=== PATIENT | female | born 1975 | race Caucasian/White ===

== ENCOUNTER 2016-11-08 19:56 | Emergency (ER) | payer SELFPAY ==
[~2016-11-08] VITALS: Ht 165.1 cm; Wt 138.3 kg
--- OUTSIDE RECORDS SUMMARY | 2016-11-08 20:02 | XMS REPORT | Continuity of Care Document ---
Author Author Interface Organization Interface Address Unknown Phone Unavailable Problems Problem Status Onset Date Classification Date Reported Comments Source Medications Medication Details Route Status Patient Instructions Ordering Provider Order Date Source Allergies, Adverse Reactions, Alerts Substance Category Reaction Severity Reaction type Status Date Reported Comments Source Immunizations Immunization Date Given Site Status Last Updated Comments Source Results Order Name Results Value Reference Range Date Interpretation Comments Source Vital Signs Vital Sign Value Date Comments Source Encounters Location Location Details Encounter Type Encounter Number Reason For Visit Attending Provider ADM Date DC Date Status Source Procedures Procedure Code Date Perfomer Comments Source
[2016-11-08] MEDS ORDERED: ONDANSETRON 4 MG/2 ML (SDV) Z0FRAN IVP ONE (20:15)
[2016-11-08] MEDS ORDERED: SCOPOLAMINE 1.5 MG (TRANSDERM-SCOP) PATCH TD ONE (20:15)
[2016-11-08 20:28] LABS: BASOPHILS % (AUTO) 0 % (0-10); EOSINOPHILS # (AUTO) 0.2 10^3/uL (0.0-0.3); EOSINOPHILS % (AUTO) 2 % (0-10); LYMPHOCYTES # (AUTO) 5.3 X 10^3 (1.0-4.0); LYMPHOCYTES % (AUTO) 48 % (12-44); MEAN CORPUSCULAR HEMOGLOBIN 28 PG (25-34); MEAN CORPUSCULAR HGB CONC 33 G/DL (32-36); MEAN CORPUSCULAR VOLUME 84 FL (80-99); MEAN PLATELET VOLUME 11.2 FL (7.4-10.4); MONOCYTES # (AUTO) 0.7 X 10^3 (0.0-1.0); MONOCYTES % (AUTO) 7 % (0-12); NEUTROPHILS # (AUTO) 4.9 X 10^3 (1.8-7.8); NEUTROPHILS % (AUTO) 44 % (42-75); PLATELET COUNT 326 10^3/uL (130-400); RED BLOOD COUNT 4.66 10^6/uL (4.35-5.85); RED CELL DISTRIBUTION WIDTH 14.5 % (10.0-14.5); WHITE BLOOD COUNT 11.2 10^3/uL (4.3-11.0)
[2016-11-08 20:28] LABS: BILIRUBIN,URINE NEGATIVE (NEGATIVE); KETONES,URINE 1+ (NEGATIVE); LEUKOCYTE ESTERASE ,URINE NEGATIVE (NEGATIVE); NITRITE,URINE NEGATIVE (NEGATIVE); PH,URINE 6 (5-9); PROTEIN,URINE 2+ (NEGATIVE); UROBILINOGEN,URINE NORMAL (NORMAL)
[2016-11-08 20:31] LABS: PROTHROMBIN TIME PATIENT 12.8 SEC (12.2-14.7)
[2016-11-08] MEDS ORDERED: OMEP40CA36 PO (20:34)
[2016-11-08] MEDS ORDERED: CARV25TA PO (20:34)
[2016-11-08] MEDS ORDERED: LISI40TA PO (20:34)
[2016-11-08] MEDS ORDERED: SITA100T12 PO (20:34)
[2016-11-08] MEDS ORDERED: GLIM4TAB PO (20:34)
[2016-11-08] MEDS ORDERED: METF1000 PO (20:34)
[2016-11-08] MEDS ORDERED: FLUO40CA12 PO (20:34)
[2016-11-08] MEDS ORDERED: ASPI-586 PO (20:34)
[2016-11-08 20:47] LABS: ALANINE AMINOTRANSFERASE 17 U/L (0-55); ALBUMIN 3.7 G/DL (3.2-4.5); AMYLASE 28 U/L (25-125); ANION GAP 11 MMOL/L (5-14); ASPARTATE AMINO TRANSFERASE 10 U/L (5-34); BILIRUBIN,TOTAL 0.3 MG/DL (0.1-1.0); BLOOD UREA NITROGEN 12 MG/DL (7-18); BUN/CREATININE RATIO 13; CALCIUM 9.3 MG/DL (8.5-10.1); CARBON DIOXIDE 24 MMOL/L (21-32); CHLORIDE 99 MMOL/L (98-107); CREATINE KINASE 51 U/L (29-168); CREATININE SERUM 0.89 MG/DL (0.60-1.30); GFR ESTIMATED > 60; GLUCOSE 278 MG/DL (70-105); LIPASE 30 U/L (8-78); MAGNESIUM 1.3 MG/DL (1.8-2.4); POTASSIUM 4.1 MMOL/L (3.6-5.0); SODIUM 134 MMOL/L (135-145); TOTAL PROTEIN 6.8 G/DL (6.4-8.2)
[2016-11-08 20:47] LABS: WBC,URINE RARE /HPF
[2016-11-08 20:48] LABS: ALCOHOL < 10 MG/DL (<10)
[2016-11-08 21:01] LABS: TROPONIN I < 0.30 NG/ML (<0.30)
--- NOTE | 2016-11-08 21:02 | Diagnostic Imaging Report ---
PROCEDURE: CT head without contrast. TECHNIQUE: Multiple contiguous axial images were obtained through the brain without the use of intravenous contrast. INDICATION: Headache, dizziness, with nausea and vomiting COMPARISON STUDIES: None FINDINGS: Noncontrast CT scan of the head demonstrates no mass effect, midline shift, hemorrhage, or extra-axial fluid collections. The welch-white matter differentiation is normal. Visualized portions of the paranasal sinuses and mastoid air cells are clear. IMPRESSION: Negative CT scan of the head. Dictated by: Dictated on workstation # [id number]
--- NOTE | 2016-11-08 21:22 | Diagnostic Imaging Report ---
INDICATION: Chest pain, broken ribs on the left side of fourth, fifth, and sixth. FINDINGS: Portable view of the chest demonstrates the heart size and vascularity to be normal. There is some blunting of the left costophrenic angle which may be related to previous trauma. Small effusion cannot be excluded. There are healing fractures of the left fourth, fifth, and sixth ribs. No pneumothorax is seen. IMPRESSION: There are healing fractures of the left fourth, fifth, and sixth ribs. Some blunting of the left costophrenic angle is present which could be secondary to an effusion or more likely related to the previous chest trauma. Dictated by: Dictated on workstation # [id number]
--- NOTE | 2016-11-08 21:22 | ED General ---
General Chief Complaint: Chest Pain Stated Complaint: SVT Nursing Triage Note: PT TO [facility] WITH CC OF LT CHEST PAIN RADIATING TO BACK THAT STARTED AROUND 1400 TODAY. HX OF FX RIBS ON LT SIDE. PT HAD JUST GOT DONE WITH A 30 MIN WALK BEFORE PAIN STARTED. ALSO STATES VOMITING, DENIES DIARRHEA, DENIES URINARY PROBLEMS. Nursing Sepsis Screen: No Definite Risk Source of Information: Patient, EMS History of Present Illness Time Seen by Provider: 19:57 Initial Comments PT ARRIVES VIA EMS FROM HOME C/O "MILD" LEFT SIDED CHEST PAIN SINCE 1400 TODAY PAIN BEGAN AFTER SHE GOT HOME FROM "30 MINUTE WALK AT [place]" STATES SHE BROKE LEFT RIBS 2 YEARS AGO AND CHEST STILL HURTS FROM THAT STATES SHE IS "EXTREMELY DIZZY" C/O NAUSEA AND VOMITED "4 TIMES IN ONE SESSION" NO DIARRHEA NO ABDOMINAL PAIN NO URINARY SYMPTOMS HAS BEEN EATING AND DRINKING FINE ALL DAY NO SHORTNESS OF BREATH NO PALPITATIONS NO SWELLING IN LEGS/FEET OR PAIN IN CALVES PT IS DIABETIC BUT STATES SHE HAS NOT CHECKED HER BLOOD SUGAR FOR A FEW DAYS-- EMS ACCUCHECK 324 PT HAS NOT TAKEN ANY OF HER MEDICATIONS FOR THE LAST 2 DAYS--STATES MEDS "ARE OVER AT A FRIEND'S HOUSE" AND HAS NOT BOTHERED TO GET THEM. PCP: NORAH[facility] NO [facility] INST[facility] Allergies and Home Medications Allergies Coded Allergies: doxycycline (Verified Allergy, Unknown, 11/08/16) hydromorphone (Verified Allergy, Unknown, 11/08/16) latex (Verified Allergy, Unknown, 11/08/16) metoclopramide (Verified Allergy, Unknown, 11/08/16) morphine (Verified Allergy, Unknown, 11/08/16) prochlorperazine (Verified Allergy, Unknown, 11/08/16) Home Medications Aspirin 81 Mg Tablet. 81 MG PO (Reported) Carvedilol 25 Mg Tablet 25 MG PO BID (Reported) Fluoxetine HCl 40 Mg Capsule 40 MG PO (Reported) Glimepiride 4 Mg Tablet 4 MG PO (Reported) Lisinopril 40 Mg Tablet 40 MG PO DAILY (Reported) Meclizine HCl 25 Mg Tablet #30 25-50 MG PO Q6H Prescribed by: SANJANA BARNETT on 11/08/16 0844 Metformin HCl 1,000 Mg Tablet 1,000 MG PO (Reported) Omeprazole 40 Mg Capsule.dr 40 MG PO (Reported) Ondansetron 4 Mg Tab.rapdis #10 4 MG PO Q4H Prescribed by: SANJANA BARNETT on 11/08/162146 Scopolamine 1 Each Patch.td72 #3 1 EACH TD Q72 HOURS Prescribed by: SANJANA BARNETT on 11/08/162146 Sitagliptin Phosphate 100 Mg Tablet 100 MG PO (Reported) Constitutional: see HPINo chills, No diaphoresis, dizzinessNo fever, No malaise, No weakness EENTM: no symptoms reported Respiratory: no symptoms reportedNo cough, No short of breath, No wheezing Cardiovascular: see HPI chest painNo edema, No palpitations, No syncope, No vascular heart diseas Gastrointestinal: see HPINo abdominal pain, No diarrhea, No loss of appetite, nausea vomiting Genitourinary: no symptoms reported LMP: Oct 16, 2016 (NO CONTROL) Musculoskeletal: no symptoms reported Skin: no symptoms reported Psychiatric/Neurological: No Symptoms Reported Hematologic/Lymphatic: No Symptoms Reported Immunological/Allergic: no symptoms reported Past Ornsrlu-Hdkypu-Wkyykp Hx Patient Social History Alcohol Use: Occasionally Uses Recreational Drug Use: Yes (YEARS AGO "EXPERIMENTED" WITH DRUGS, WILL NOT ELABORATE ) Smoking Status: Current Everyday Smoker (1-2 PPD) Type Used: Cigarettes 2nd Hand Smoke Exposure: Yes Recent Foreign Travel: No Contact w/Someone Who Travel: No Recent Infectious Disease Expo: No Recent Hopitalizations: No Seasonal Allergies Seasonal Allergies: Yes Surgeries HX Surgeries: Yes (T&A 1988; DARIAN WELDON 1996; LYMPH NODES REMOVED FROM GROIN AGE 15; SEVERAL SEBACEOUS CYSTS/ABSCESSES REMOVED/DRAINED) Surgeries: Adenoidectomy, Gallbladder, Tonsillectomy Respiratory Hx Respiratory Disorders: Yes Respiratory Disorders: Asthma Cardiovascular Hx Cardiac Disorders: Yes (SVT) Cardiac Disorders: High Cholesterol, Hypertension, Irregular Heartbeat Neurological Hx Neurological Disorders: Yes Neurological Disorders: Headaches /Migraines, Neuropathy Reproductive System : No Genitourinary Hx Genitourinary Disorders: No Gastrointestinal Hx Gastrointestinal Disorders: Yes Gastrointestinal Disorders: Gastroesophageal Reflux Endocrine Hx Endocrine Disorders: Yes (OBESITY) Endocrine Disorders: Diabetes, Non-Insulin dep HEENT HX ENT Disorders: No Cancer Hx Cancer: No Psychosocial Hx Psychiatric Problems: Yes Behavioral Health Disorders: Depression Integumentary HX Skin/Integumentary Disorder: No Blood Transfusions Hx Blood Disorders: No Physical Exam Vital Signs Vital Sign - Last 12Hours 2/7/17 20:04 Temp 98.0 Pulse 87 Resp 20 B/P 163/88 Pulse Ox 97 O2 Delivery Room Air Capillary Refill : Less Than 3 Seconds General Appearance: No Apparent Distress Obese Other (REEKS OF CIGARETTES) HEENT: PERRL/EOMI Other (POOR DENTITION) Neck: Full Range of Motion Normal Inspection Non Tender SuppleNo JVD Respiratory: Normal Breath Sounds No Accessory Muscle Use No Respiratory Distress Other (LEFT CHEST WALL / RIB TENDERNESS--PALPATION REPRODUCES PAIN ) Cardiovascular: Regular Rate, Rhythm No Edema No JVD No Murmur Normal Peripheral Pulses Gastrointestinal: Normal Bowel Sounds No Organomegaly No Pulsatile Mass Non Tender Soft Back: Normal Inspection No CVA Tenderness No Vertebral Tenderness Extremity: Normal Capillary Refill Normal Inspection Normal Range of Motion Non Tender No Calf Tenderness No Pedal Edema Neurologic/Psychiatric: Alert Oriented x3 No Motor/Sensory Deficits Normal Mood/Affect accident investigator II-XII Norm as Tested Skin: Normal Color Warm/Dry Progress/Results/Core Measures Results/Orders Lab Results Laboratory Tests Test 11/08/16 20:00 11/08/16 20:20 Range/Units Activated Partial Thromboplast Time 25 24-35 SEC Alanine Aminotransferase (ALT/SGPT) 17 0-55 U/L Albumin 3.7 3.2-4.5 G/DL Alkaline Phosphatase 54 40-136 U/L Amylase Level 28 25-125 U/L Anion Gap 11 5-14 MMOL/L Aspartate Amino Transf (AST/SGOT) 10 5-34 U/L B-Type Natriuretic Peptide 18.7 <100.0 PG/ML BUN/Creatinine Ratio 13 Basophils # (Auto) 0.0 0.0-0.1 10^3/uL Basophils (%) (Auto) 0 0-10 % Blood Urea Nitrogen 12 7-18 MG/DL Calcium Level 9.3 8.5-10.1 MG/DL Carbon Dioxide Level 24 21-32 MMOL/L Chloride Level 99 98-107 MMOL/L Creatine Kinase MB 1.0 <6.6 NG/ML Creatinine 0.89 0.60-1.30 MG/DL Eosinophils # (Auto) 0.2 0.0-0.3 10^3/uL Eosinophils (%) (Auto) 2 0-10 % Estimat Glomerular Filtration Rate > 60 Glucose Level 278 H 70-105 MG/DL Hematocrit 39 35-52 % Hemoglobin 13.0 11.5-16.0 G/DL INR Comment 1.0 0.8-1.4 Lipase 30 8-78 U/L Lymphocytes # (Auto) 5.3 H 1.0-4.0 X 10^3 Lymphocytes (%) (Auto) 48 H 12-44 % Magnesium Level 1.3 L 1.8-2.4 MG/DL Mean Corpuscular Hemoglobin 28 25-34 PG Mean Corpuscular Hemoglobin Concent 33 32-36 G/DL Mean Corpuscular Volume 84 80-99 FL Mean Platelet Volume 11.2 H 7.4-10.4 FL Monocytes # (Auto) 0.7 0.0-1.0 X 10^3 Monocytes (%) (Auto) 7 0-12 % Neutrophils # (Auto) 4.9 1.8-7.8 X 10^3 Neutrophils (%) (Auto) 44 42-75 % Platelet Count 326 130-400 10^3/uL Potassium Level 4.1 3.6-5.0 MMOL/L Prothrombin Time 12.8 12.2-14.7 SEC Red Blood Count 4.66 4.35-5.85 10^6/uL Red Cell Distribution Width 14.5 10.0-14.5 % Serum Alcohol < 10 <10 MG/DL Serum Test, Qualitative NEGATIVE NEGATIVE Sodium Level 134 L 135-145 MMOL/L TSH [place] Testing 1.88 0.35-4.94 UIU/ML Total Bilirubin 0.3 0.1-1.0 MG/DL Total Creatine Kinase 51 29-168 U/L Total Protein 6.8 6.4-8.2 G/DL Troponin I < 0.30 <0.30 NG/ML White Blood Count 11.2 H 4.3-11.0 10^3/uL Ur Tricyclic Antidepressants Screen NEGATIVE NEGATIVE Urine Amphetamines Screen NEGATIVE NEGATIVE Urine Bacteria TRACE /HPF Urine Barbiturates Screen NEGATIVE NEGATIVE Urine Benzodiazepines Screen NEGATIVE NEGATIVE Urine Bilirubin NEGATIVE NEGATIVE Urine Cannabinoids Screen NEGATIVE NEGATIVE Urine Casts NONE /LPF Urine Clarity SLIGHTLY CLOUDY Urine Cocaine Screen NEGATIVE NEGATIVE Urine Color YELLOW Urine Crystals NONE /LPF Urine Culture Indicated NO Urine Glucose (UA) 4+ H NEGATIVE Urine Ketones 1+ H NEGATIVE Urine Leukocyte Esterase NEGATIVE NEGATIVE Urine Methadone Screen NEGATIVE NEGATIVE Urine Methamphetamines Screen NEGATIVE NEGATIVE Urine Mucus NEGATIVE /LPF Urine Nitrite NEGATIVE NEGATIVE Urine Opiates Screen NEGATIVE NEGATIVE Urine Oxycodone Screen NEGATIVE NEGATIVE Urine Phencyclidine Screen NEGATIVE NEGATIVE Urine Propoxyphene Screen NEGATIVE NEGATIVE Urine Protein 2+ H NEGATIVE Urine RBC NONE /HPF Urine RBC (Auto) NEGATIVE NEGATIVE Urine Specific [place] 1.015 L 1.016-1.022 Urine Squamous Epithelial Cells 2-5 /HPF Urine Urobilinogen NORMAL NORMAL MG/DL Urine WBC RARE /HPF Urine pH 6 5-9 My Orders Orders-ANIBALSANJANA K DO Accucheck Stat ONCE (11/08/16 20:11) Saline Lock/Iv-Start (11/08/16 20:11) Ekg Tracing (11/08/16 20:11) Monitor-Rhythm Ecg Trace Only (11/08/16 20:11) Ct Head Wo (11/08/16 20:11) Alcohol (11/08/16 20:11) Amylase (11/08/16 20:11) BNP (11/08/16 20:11) Cbc With Automated Diff (11/08/16 20:11) Comprehensive Metabolic Panel (11/08/16 20:11) Creatine Kinase (11/08/16 20:11) Creatine Kinase Mb (11/08/16 20:11) Drug Screen Stat (Urine) (11/08/16 20:11) Hcg,Qualitative Serum (11/08/16 20:11) Lipase (11/08/16 20:11) Magnesium (11/08/16 20:11) Protime With Inr (11/08/16 20:11) Partial Thromboplastin Time (11/08/16 20:11) Thyroid Analyzer (11/08/16 20:11) Troponin I (11/08/16 20:11) Ua Culture If Indicated (11/08/16 20:11) Chest 1 View, Ap/Pa Only (11/08/16 20:11) Scopolamine Patch (Transderm-Scop Patch) (11/08/16 20:15) Ondansetron Injection (Zofran Injectio (11/08/16 20:15) Ketorolac Injection (Toradol Injection) (11/08/16 21:45) Clonidine Tablet (Catapres Tablet) (11/08/16 21:45) Meclizine Tablet (Antivert Tablet) (11/08/16 21:45) Medications Given in ED Vital Signs/I&O Blood Pressure Mean: 113 Progress Note : Progress Note 2139-C/O HEADACHE GIVEN MEDICATIONS FOR HEADACHE AND BP--HEADACHE GONE AND BP DOWN AND PT LESS DIZZY AT TIME OF DISMISSAL ECG Initial ECG Impression Time: 20:03 Initial ECG Rate: 85 Initial ECG Rhythm: Normal Sinus Initial ECG Comparisson: No Previous ECG Available Diagnostic Imaging Comments CT HEAD--NO ACUTE PROCESS, PER RADIOLOGIST REPORT @ 2120 CXR--NO ACUTE PROCESS, OLD HEALED LEFT RIB FRACTURES, PER RADIOLOGIST REPORT @ 2122 Reviewed: Reviewed by Me Departure Impression Impression: Primary Impression: Dizziness Additional Impressions: Chest wall pain HTN (hypertension) Non-compliance Disposition: HOME, SELF-CARE Condition: Improved Departure-Patient Inst. Referrals: [facility] Patient Instructions: Chest Pain That Is Not Caused by the Heart (DC), Dizziness, Nonvertigo, (DC), Heart Healthy Diet, High Blood Pressure (DC), Vertigo (a Type of Dizziness) (DC) Add. Discharge Instructions: TAKE YOUR MEDICATIONS PRESCRIBED--DO NOT MISS ANY DOSES OF ANY OF YOUR MEDICATIONS!!!! TYLENOL AND MOTRIN NEEDED FOR PAIN FOLLOW UP WITH [facility] IN 2-3 DAYS IF NO BETTER RETURN TO ER IF WORSE All discharge instructions reviewed with patient and/or family. Voiced understanding. Scripts Ondansetron (Zofran Odt)4 Mg Tab.rapdis4 Mg PO Q4H Nausea/Vomiting #10 TAB Prov:SANJANA BARNETT DO 11/08/16 Meclizine HCl 25 Mg Hxsajo72-04 Mg PO Q6H Dizziness #30 TAB Prov:SANJANA BARNETT DO 11/08/16 Scopolamine (Transderm-Scop)1 Each Patch.td721 Each TD Q72 HOURS Dizziness #3 PATCH Prov:SANJANA BARNETT DO 11/08/16 SANJANA BARNETT DO Nov 08, 2016 21:22
[2016-11-08] MEDS ORDERED: KETOROLAC 30 MG/ML VIAL IVP ONE (21:45)
[2016-11-08] MEDS ORDERED: cloNIDine 0.2 MG (CATAPRES) TAB PO ONE (21:45)
[2016-11-08] MEDS ORDERED: MECLIZINE 25 MG (ANTIVERT) TAB PO ONE (21:45)
[2016-11-08] MEDS ORDERED: MECL-106 PO (21:47)
[2016-11-08] MEDS ORDERED: ONDA4TAB8 PO (21:47)
[2016-11-08] MEDS ORDERED: SCOP1PAT TD (21:47)
[2016-11-08 22:43] VITALS: BP 177/94
== END 2016-11-08 22:45 | disposition home or self-care (01) ==
LOC: ER 19:58
DX: R42 Dizziness and giddiness (principal); R07.89 Other chest pain; I10 Essential (primary) hypertension; E11.9 Type 2 diabetes mellitus without complications; Z79.84 Long term (current) use of oral hypoglycemic drugs; Z79.82 Long term (current) use of aspirin; Z79.899 Other long term (current) drug therapy; E66.9 Obesity, unspecified; F17.210 Nicotine dependence, cigarettes, uncomplicated; Z91.14 Patient's other noncompliance with medication regimen
CPT/HCPCS: 36415; 70450; 71010; 80053; 80306; 80320; 81000; 82150; 82550; 82553; 83690; 83735; 83880; 84443; 84484; 84703; 85025; 85610; 85730; 93005; 93041; 96374; 96375

== ENCOUNTER 2016-11-26 15:34 | Emergency (ER) | payer SELFPAY ==
[~2016-11-26] VITALS: Ht 165.1 cm; Wt 133.8 kg
[~2016-11-26 15:34] MED LIST: ASPI-586 PO; CARV25TA PO; FLUO40CA12 PO; GLIM4TAB PO; LISI40TA PO; MECL-106 PO; METF1000 PO; OMEP40CA36 PO; ONDA4TAB8 PO; SCOP1PAT TD; SITA100T12 PO
--- NOTE | 2016-11-26 15:41 | ED Back Pain ---
General Chief Complaint: Back Problems Stated Complaint: BACK PAIN Source of Information: Patient Exam Limitations: No Limitations History of Present Illness Time Seen by Provider: 15:40 Initial Comments Arrives to ER from home per EMS To ER with a sharp right-sided upper back pain present since this morning. Pain is worsened with movement and deep breathing. She denies shortness of breath but she has had a recent cough. Timing/Duration: 1-2 Days Severity: Moderate Pain/Injury Location: Back Allergies and Home Medications Allergies Coded Allergies: doxycycline (Verified Allergy, Unknown, 11/08/16) hydromorphone (Verified Allergy, Unknown, 11/08/16) latex (Verified Allergy, Unknown, 11/08/16) metoclopramide (Verified Allergy, Unknown, 11/08/16) morphine (Verified Allergy, Unknown, 11/08/16) prochlorperazine (Verified Allergy, Unknown, 11/08/16) Home Medications Aspirin 81 Mg Tablet.dr 81 MG PO (Reported) Carvedilol 25 Mg Tablet 25 MG PO BID (Reported) Fluoxetine HCl 40 Mg Capsule 40 MG PO (Reported) Glimepiride 4 Mg Tablet 4 MG PO (Reported) Lisinopril 40 Mg Tablet 40 MG PO DAILY (Reported) Meclizine HCl 25 Mg Tablet #30 25-50 MG PO Q6H Prescribed by: SANJANA BARNETT on 11/08/162146 Metformin HCl 1,000 Mg Tablet 1,000 MG PO (Reported) Omeprazole 40 Mg Capsule.dr 40 MG PO (Reported) Ondansetron 4 Mg Tab.rapdis #10 4 MG PO Q4H Prescribed by: SANJANA BARNETT on 11/08/162146 Scopolamine 1 Each Patch.td72 #3 1 EACH TD Q72 HOURS Prescribed by: SANJANA BARNETT on 11/08/162146 Sitagliptin Phosphate 100 Mg Tablet 100 MG PO (Reported) Constitutional: see HPI EENTM: see HPI Respiratory: no symptoms reported Cardiovascular: no symptoms reported Musculoskeletal: no symptoms reported Skin: no symptoms reported Psychiatric/Neurological: No Symptoms Reported Past Crzzkmn-Ygrxyo-Ayrqmf Hx Patient Social History Alcohol Use: Denies Use Recreational Drug Use: No Smoking Status: Current Everyday Smoker Type Used: Cigarettes 2nd Hand Smoke Exposure: Yes Recent Hopitalizations: No Seasonal Allergies Seasonal Allergies: Yes Surgeries HX Surgeries: Yes Surgeries: Adenoidectomy, Gallbladder, Tonsillectomy Respiratory Hx Respiratory Disorders: Yes Respiratory Disorders: Asthma Cardiovascular Hx Cardiac Disorders: Yes (SVT) Cardiac Disorders: High Cholesterol, Hypertension, Irregular Heartbeat Neurological Hx Neurological Disorders: Yes Neurological Disorders: Headaches /Migraines, Neuropathy Genitourinary Hx Genitourinary Disorders: No Gastrointestinal Hx Gastrointestinal Disorders: Yes Gastrointestinal Disorders: Gastroesophageal Reflux Endocrine Hx Endocrine Disorders: Yes (OBESITY) Endocrine Disorders: Diabetes, Non-Insulin dep HEENT HX ENT Disorders: No Cancer Hx Cancer: No Psychosocial Hx Psychiatric Problems: Yes Behavioral Health Disorders: Depression Integumentary HX Skin/Integumentary Disorder: No Blood Transfusions Hx Blood Disorders: No Physical Exam Vital Signs Vital Sign - Last 12Hours 11/26/16 15:35 Temp 97.2 Pulse 84 Resp 16 Pulse Ox 96 Capillary Refill : General Appearance: No Apparent Distress WD/WN Obese HEENT: PERRL/EOMI TMs Normal Neck: Full Range of Motion Supple Cardiovascular: Regular Rate, Rhythm Normal Peripheral Pulses Respiratory: Lungs Clear Normal Breath Sounds No Accessory Muscle Use No Respiratory Distress Gastrointestinal: Normal Bowel Sounds Non Tender Soft Extremity: Normal Capillary Refill Normal Inspection Neurologic/Psychiatric: Alert Oriented x3 No Motor/Sensory Deficits Skin: Normal Color Warm/Dry Progress/Results/Core Measures Results/Orders My Orders Orders-SAILAJA FERNANDES APRN Ketorolac Injection (Toradol Injection) (11/26/16 15:45) Orphenadrine Injection (Norflex Injectio (11/26/16 15:45) Chest Pa/Lat (2 View) (11/26/16 15:39) Metoprolol Tartrate (Ir) Tab (Lopressor (11/26/16 16:00) Medications Given in ED Current Medications Medications Dose Ordered Sig/[place] Route Start Time Stop Time Status Last Admin Dose Admin Ketorolac Tromethamine 60 mg ONCE ONCE IM 11/26/16 15:45 11/26/16 15:46 DC 11/26/16 16:00 60 MG Metoprolol Tartrate 25 mg ONCE ONCE PO 11/26/16 16:00 11/26/16 16:01 DC 11/26/16 16:13 25 MG Orphenadrine Citrate 60 mg ONCE ONCE IM 11/26/16 15:45 11/26/16 15:46 DC 11/26/16 15:58 60 MG Vital Signs/I&O Vital Sign - Last 12Hours 11/26/16 15:35 Temp 97.2 Pulse 84 Resp 16 B/P Pulse Ox 96 Diagnostic Imaging Diagonstic Imaging: Xray Plain Films/CT/US/NM/MRI: chest Comments NAME: ISABELLA BERNSTEIN [facility] REC#: [id number] PT STATUS: REG ER : 1975 PHYSICIAN: SAILAJA FERNANDES APRN ADMIT DATE: 11/26/16/ER Draft Date of Exam:11/26/16 CHEST PA/LAT (2 VIEW) INDICATION: Back pain, started this morning. Cough. EXAMINATION: Two-view chest, 11/26/2016. COMPARISON: 11/08/2016. FINDINGS: Two views of the chest. There is right base atelectasis versus mild infiltrate, correlate with symptoms. This is new since previous imaging. The heart is stable. Pulmonary vasculature appears unchanged. Likely old rib fractures are noted throughout the left chest, similar to previous imaging. No pneumothorax is seen. There are no effusions. IMPRESSION: 1. Right base atelectasis versus infiltrate, correlate with symptoms. 2. Multiple left lateral and posterior rib fractures noted. Dictated on workstation # [id number] Dict: 11/26/16 1613 Trans: 11/26/16 1620 [facility] [id number] Interpreted by: ZAK BARCLAY MD Electronically signed by: Departure Impression Impression: Primary Impression: Chest wall pain Additional Impression: Pneumonia Disposition: 01 HOME, SELF-CARE Condition: Stable Departure-Patient Inst. Decision time for Depature: 16:23 Referrals: [facility] (PCP/Family) Primary Care Physician Patient Instructions: Chest Pain That Is Not Caused by the Heart (DC) Add. Discharge Instructions: Use Tylenol and Motrin for pain 2. Return to ER for any concerns All discharge instructions reviewed with patient and/or family. Voiced understanding. Scripts Cefdinir 300 Mg [id number] Mg PO BID #14 CAP Prov:SAILAJA FERNANDES APRN 11/26/16 SAILAJA FERNANDES APRN Nov 26, 2016 15:41
[2016-11-26] MEDS ORDERED: ORPHENADRINE 60 MG/2 ML (NORFLEX) AMP IM ONE (15:45)
[2016-11-26] MEDS ORDERED: KETOROLAC 60 MG/2 ML VIAL IM ONE (15:45)
[2016-11-26] MEDS ORDERED: meTOprolol TARTRATE 25 MG (LOPRESSOR) TABLET PO ONE (16:00)
--- NOTE | 2016-11-26 16:20 | Diagnostic Imaging Report ---
INDICATION: Back pain, started this morning. Cough. EXAMINATION: Two-view chest, 11/26/2016. COMPARISON: 11/08/2016. FINDINGS: Two views of the chest. There is right base atelectasis versus mild infiltrate, correlate with symptoms. This is new since previous imaging. The heart is stable. Pulmonary vasculature appears unchanged. Likely old rib fractures are noted throughout the left chest, similar to previous imaging. No pneumothorax is seen. There are no effusions. IMPRESSION: 1. Right base atelectasis versus infiltrate, correlate with symptoms. 2. Multiple left lateral and posterior rib fractures noted. Dictated by: Dictated on workstation # [id number]
[2016-11-26] MEDS ORDERED: CEFD300C3 PO (16:24)
[2016-11-26 16:30] VITALS: BP 188/100
== END 2016-11-26 16:30 | disposition home or self-care (01) ==
LOC: EDUNIT# 15:34 → ER 15:35
DX: J18.9 Pneumonia, unspecified organism (principal); R07.81 Pleurodynia
CPT/HCPCS: 71020; 96372; 99283

== ENCOUNTER 2016-11-27 16:58 | Emergency (ER) | payer SELFPAY ==
[~2016-11-27] VITALS: Ht 165.1 cm; Wt 133.8 kg
[~2016-11-27 16:58] MED LIST changes: +CEFD300C3 PO
--- NOTE | 2016-11-27 17:35 | ED General ---
General Chief Complaint: Glucose Problems Stated Complaint: ELEV BLOOD SUGAR Nursing Triage Note: TO ED 8 BY [facility] WITH REPORTS OF LOW BLOOD SUGAR. PATIENT REPORTS THAT SHE WAS DIAGNOSED YESTERDAY WITH PNEUMONIA AND GOT KICKED OUT OF HER FRIENDS HOUSE BECAUSE SHE WAS SICK. PATIENT REPORTS THAT SHE LAST ATE LAST NIGHT AT THE [employer] AND WAS ON HER WAY THERE TODAY WHEN SHE FELT WEAK AND THE POLICE DEPARTMENT CALLED EMS. EMS ADMINISTERED 1 TUBE OF ORAL GLUCOSE PROJECT ADMINISTRATIVE ASSISTANT. BS WAS 40 UPON THEIR ARRIVAL. Nursing Sepsis Screen: No Definite Risk Source of Information: Patient Exam Limitations: No Limitations History of Present Illness Time Seen by Provider: 17:35 Initial Comments 41-year-old female patient presents to the emergency department via EMS with reports of hypoglycemia. Patient was seen in the emergency department yesterday and diagnosed with pneumonia. Patient states last night she was kicked out of her friend's house because she was sick and he has HIV. Patient states she was on her way to the [employer] today when she felt weak. [facility] contacted [facility] which brought her to the emergency department. On the scene patient's blood sugar was 40. Timing/Duration: Other (JPTA. Improved.) Modifying Factors: improves with Other (improved with oral glucose.) Allergies and Home Medications Allergies Coded Allergies: iodine (Unverified Allergy, Severe, HIVES, 11/27/16) doxycycline (Verified Allergy, Unknown, 11/08/16) hydromorphone (Verified Allergy, Unknown, 11/08/16) latex (Verified Allergy, Unknown, 11/08/16) metoclopramide (Verified Allergy, Unknown, 11/08/16) morphine (Verified Allergy, Unknown, 11/08/16) prochlorperazine (Verified Allergy, Unknown, 11/08/16) Home Medications Aspirin 81 Mg Tablet. 81 MG PO (Reported) Carvedilol 25 Mg Tablet 25 MG PO BID (Reported) Cefdinir 300 Mg Capsule #14 300 MG PO BID Prescribed by: SAILAJA FERNANDES on 11/26/16 1624 Fluoxetine HCl 40 Mg Capsule 40 MG PO (Reported) Glimepiride 4 Mg Tablet 4 MG PO (Reported) Lisinopril 40 Mg Tablet 40 MG PO DAILY (Reported) Meclizine HCl 25 Mg Tablet #30 25-50 MG PO Q6H Prescribed by: SANJANA BARNETT on 2/7/17 2147 Metformin HCl 1,000 Mg Tablet 1,000 MG PO (Reported) Omeprazole 40 Mg Capsule.dr 40 MG PO (Reported) Ondansetron 4 Mg Tab.rapdis #10 4 MG PO Q4H Prescribed by: SANJANA BARNETT on 11/08/162146 Scopolamine 1 Each Patch.td72 #3 1 EACH TD Q72 HOURS Prescribed by: SANJANA BARNETT on 11/08/162146 Sitagliptin Phosphate 100 Mg Tablet 100 MG PO (Reported) Constitutional: No chills, No diaphoresis, No dizziness, No fever, No malaise, other (fatigue) EENTM: no symptoms reported Respiratory: coughNo short of breath, No wheezing Cardiovascular: no symptoms reported Gastrointestinal: No abdominal pain, No constipation, No diarrhea, No nausea, No vomiting Genitourinary: no symptoms reported Musculoskeletal: no symptoms reported Skin: no symptoms reported Psychiatric/Neurological: No Symptoms Reported All Other Systems Reviewed Negative Unless Noted: Yes (Negative excepted noted.) Past Smegeyw-Juhyvq-Mnjnzz Hx Patient Social History Alcohol Use: Denies Use Recreational Drug Use: No Smoking Status: Current Everyday Smoker Type Used: Cigarettes 2nd Hand Smoke Exposure: Yes Recent Foreign Travel: No Contact w/Someone Who Travel: No Recent Infectious Disease Expo: No Recent Hopitalizations: No Seasonal Allergies Seasonal Allergies: Yes Surgeries HX Surgeries: Yes Surgeries: Adenoidectomy, Gallbladder, Tonsillectomy Respiratory Hx Respiratory Disorders: Yes Respiratory Disorders: Asthma Cardiovascular Hx Cardiac Disorders: Yes (SVT) Cardiac Disorders: High Cholesterol, Hypertension, Irregular Heartbeat Neurological Hx Neurological Disorders: Yes Neurological Disorders: Headaches /Migraines, Neuropathy Genitourinary Hx Genitourinary Disorders: No Gastrointestinal Hx Gastrointestinal Disorders: Yes Gastrointestinal Disorders: Gastroesophageal Reflux Endocrine Hx Endocrine Disorders: Yes (OBESITY) Endocrine Disorders: Diabetes, Non-Insulin dep HEENT HX ENT Disorders: No Cancer Hx Cancer: No Psychosocial Hx Psychiatric Problems: Yes Behavioral Health Disorders: Depression Integumentary HX Skin/Integumentary Disorder: No Blood Transfusions Hx Blood Disorders: No Reviewed Nursing Assessment Reviewed/Agree w Nursing PMH: Yes Family Medical History Significant Family History: No Pertinent Family Hx Physical Exam Vital Signs Vital Sign - Last 12Hours 11/27/16 16:59 Temp 97.8 Pulse 82 Resp 18 B/P 148/79 Pulse Ox 97 O2 Delivery Room Air Capillary Refill : Less Than 3 Seconds General Appearance: No Apparent Distress WD/WN Obese Other (clothes are dirty and stained.) HEENT: PERRL/EOMI Pharynx Normal Neck: Normal Inspection Supple Respiratory: Lungs Clear Normal Breath Sounds No Respiratory Distress Cardiovascular: Regular Rate, Rhythm No Murmur Normal Peripheral Pulses Gastrointestinal: Normal Bowel Sounds Non Tender SoftNo Distended Extremity: Normal Capillary Refill Normal Inspection Neurologic/Psychiatric: Alert Oriented x3 No Motor/Sensory Deficits Normal Mood/Affect travel manager II-XII Norm as Tested Skin: Normal Color Warm/Dry Progress/Results/Core Measures Results/Orders Lab Results Laboratory Tests Test 11/27/16 17:01 11/27/16 17:39 11/27/16 18:49 11/27/16 19:29 Range/Units Glucometer 53 *L 43 *L 65 L 74 70-110 MG/DL My Orders Orders-JOSE ANGEL THAKUR D50w (Emergency) Syringe (Dextrose 50% 5 (11/27/16 17:45) Accucheck Stat ONCE (11/27/16 17:41) General/Regular (11/27/16 Dinner) Accucheck Stat ONCE (11/27/16 18:36) Medications Given in ED Current Medications Medications Dose Ordered Sig/Emory Route Start Time Stop Time Status Last Admin Dose Admin Dextrose 50 ml ONCE ONCE IV 11/27/16 17:45 11/27/16 17:46 DC 11/27/16 17:54 50 ML Vital Signs/I&O Vital Sign - Last 12Hours 11/27/16 11/27/16 16:59 20:11 Temp 97.8 97.8 Pulse 82 75 Resp 18 18 B/P 148/79 Pulse Ox 97 98 O2 Delivery Room Air Blood Pressure Mean: 102 Departure Communication Progress Notes Patient reports feeling much better with eating and D50. FSBS is 74. Patient states she is homeless, but is getting an apartment this week. Patient refuses to go to the [facility] in [place], because "they kicked me out in October for keeping my meds in my room instead of locked up". Patient also states she "can not leave the state because I am on probation." I have provided the patient with phone numbers for [facility] in [place], [facility] in [place], and [facility] in [place]. Patient instructed to contact the shelters for bed availability. Proceed with discharge. All return precautions were discussed with the patient as described in the discharge instructions of this report. Patient voices understanding and agrees with the treatment plan. Impression Impression: Primary Impression: Hypoglycemia associated with diabetes Disposition: 01 HOME, SELF-CARE Condition: Improved Departure-Patient Inst. Decision time for Depature: 19:17 Referrals: [facility] (PCP/Family) Primary Care Physician Patient Instructions: Diabetes Type 2 (DC), HYPOGLYCEMIA Add. Discharge Instructions: All discharge instructions reviewed with patient and/or family. Voiced understanding. continue medications as instructed by your physician. Monitor blood sugars closely. Follow-up with the family practitioner for recheck as an outpatient, call for appointment time tomorrow morning. Return to the emergency department for worsening symptoms or any other concerns. JOSE ANGEL THAKUR Nov 27, 2016 17:35
[2016-11-27] MEDS ORDERED: DEXTROSE 50% 50 ML (IMS) SYR IV ONE (17:45)
[2016-11-27 20:11] VITALS: BP 139/81
== END 2016-11-27 20:11 | disposition home or self-care (01) ==
LOC: EDUNIT# 16:58 → ER 16:59
DX: E11.649 Type 2 diabetes mellitus with hypoglycemia without coma (principal); I10 Essential (primary) hypertension; E66.9 Obesity, unspecified; F17.210 Nicotine dependence, cigarettes, uncomplicated; Z79.84 Long term (current) use of oral hypoglycemic drugs; Z79.899 Other long term (current) drug therapy; Z79.82 Long term (current) use of aspirin; Z59.0 Homelessness
CPT/HCPCS: 82962; 96374

== ENCOUNTER 2017-02-16 01:45 | Emergency (ER) | payer SELFPAY ==
[~2017-02-16] VITALS: Ht 165.1 cm; Wt 131.5 kg
--- NOTE | 2017-02-16 01:59 | ED Back Pain ---
General Stated Complaint: BACK PAIN Source of Information: Patient, Family, RN Notes Reviewed (right lumbar) Exam Limitations: No Limitations History of Present Illness Time Seen by Provider: 01:58 Location: Paraspinous Muscles Timing/Duration: 4-6 Hours, Constant, Getting Worse Severity: Severe (9/10) Pain/Injury Location: Back Radiation: Other (none) Method of Injury: Other (dog jerked her while walking it) Modifying Factors: Worse With Movement, Improves With Rest Associated Symptoms: muscle spasms, lower back pain (right sided) Allergies and Home Medications Allergies Coded Allergies: iodine (Unverified Allergy, Severe, HIVES, 11/27/16) doxycycline (Verified Allergy, Unknown, 11/08/16) hydromorphone (Verified Allergy, Unknown, 11/08/16) latex (Verified Allergy, Unknown, 11/08/16) metoclopramide (Verified Allergy, Unknown, 11/08/16) morphine (Verified Allergy, Unknown, 11/08/16) prochlorperazine (Verified Allergy, Unknown, 11/08/16) Home Medications Aspirin 81 Mg Tablet.dr, 81 MG PO, (Reported) Carvedilol 25 Mg Tablet, 25 MG PO BID, (Reported) Cyclobenzaprine HCl 10 Mg Tablet, 10 MG PO Q8H PRN for back spasm, #30 Ref 0 Prescribed by: CLARITZA HANDY on 02/16/17216 Diclofenac Sodium 50 Mg Tablet.dr, 50 MG PO Q6H PRN for back pain, #30 Ref 0 Prescribed by: CLARITZA HANDY on 02/16/17217 Fluoxetine HCl 40 Mg Capsule, 40 MG PO, (Reported) Glimepiride 4 Mg Tablet, 4 MG PO, (Reported) Lisinopril 40 Mg Tablet, 40 MG PO DAILY, (Reported) Meclizine HCl 25 Mg Tablet, 25-50 MG PO Q6H, #30 Prescribed by: SANJANA BARNETT on 11/08/162146 Metformin HCl 1,000 Mg Tablet, 1,000 MG PO, (Reported) Omeprazole 40 Mg Capsule.dr, 40 MG PO, (Reported) Ondansetron 4 Mg Tab.rapdis, 4 MG PO Q4H, #10 Prescribed by: SANJANA BARNETT on 11/08/162146 Scopolamine 1 Each Patch.td72, 1 EACH TD Q72 HOURS, #3 Prescribed by: SANJANA BARNETT on 11/08/162146 Sitagliptin Phosphate 100 Mg Tablet, 100 MG PO, (Reported) Constitutional: see HPI Musculoskeletal: see HPI, back pain All Other Systems Reviewed Negative Unless Noted: Yes (Negative excepted noted.) Past Ggeouxo-Hxzoaw-Qhmzny Hx Patient Social History Type Used: Cigarettes 2nd Hand Smoke Exposure: Yes Recent Foreign Travel: No Contact w/Someone Who Travel: No Recent Hopitalizations: No Seasonal Allergies Seasonal Allergies: Yes Surgeries HX Surgeries: Yes Surgeries: Adenoidectomy, Gallbladder, Tonsillectomy Respiratory Hx Respiratory Disorders: Yes Respiratory Disorders: Asthma Cardiovascular Hx Cardiac Disorders: Yes (SVT) Cardiac Disorders: High Cholesterol, Hypertension, Irregular Heartbeat Neurological Hx Neurological Disorders: Yes Neurological Disorders: Headaches /Migraines, Neuropathy Genitourinary Hx Genitourinary Disorders: No Gastrointestinal Hx Gastrointestinal Disorders: Yes Gastrointestinal Disorders: Gastroesophageal Reflux Endocrine Hx Endocrine Disorders: Yes (OBESITY) Endocrine Disorders: Diabetes, Non-Insulin dep HEENT HX ENT Disorders: No Cancer Hx Cancer: No Psychosocial Hx Psychiatric Problems: Yes Behavioral Health Disorders: Depression Integumentary HX Skin/Integumentary Disorder: No Blood Transfusions Hx Blood Disorders: No Family Medical History Significant Family History: No Pertinent Family Hx Physical Exam Vital Signs Vital Sign - Last 12Hours 02/16/17 02:01 Temp 98.1 Pulse 79 Resp 18 B/P (MAP) 138/76 Pulse Ox 97 O2 Delivery Room Air Capillary Refill : General Appearance: WD/WN, Mild Distress, Obese Cardiovascular: Regular Rate, Rhythm Respiratory: No Respiratory Distress Gastrointestinal: Other (obese) Back: Muscle Spasm (right lumbar paravertebral musculature) Neurologic/Psychiatric: Alert, Oriented x3, No Motor/Sensory Deficits Skin: Warm/Dry Progress/Results/Core Measures Results/Orders My Orders Orders - CLARITZA HANDY DO Ketorolac Injection (Toradol Injection) (02/16/17 02:15) Cyclobenzaprine Tablet (Flexeril Tablet) (02/16/17 02:11) Rx-Tramadol Hcl (Rx-Ultram) (02/16/17 02:15) Medications Given in ED Current Medications Medications Dose Ordered Sig/Emory Route Start Time Stop Time Status Last Admin Dose Admin Ketorolac Tromethamine 60 mg ONCE ONCE IM 02/16/17 02:15 02/16/17 02:16 DC 02/16/17 02:18 60 MG Tramadol HCl PRN Q6H PRN PO 02/16/17 02:15 02/16/17 02:25 DC 02/16/17 02:18 50 MG Vital Signs/I&O Vital Sign - Last 12Hours 02/16/17 02/16/17 02:01 02:24 Temp 98.1 98.1 Pulse 79 79 Resp 18 18 B/P (MAP) 138/76 Pulse Ox 97 97 O2 Delivery Room Air Departure Impression Impression: Primary Impression: Acute exacerbation of chronic back pain Disposition: HOME, SELF-CARE Condition: Stable Departure-Patient Inst. Decision time for Depature: 02:15 Referrals: [facility] (PCP/Family) Primary Care Physician Patient Instructions: Muscle Strain (DC) Scripts Diclofenac Sodium (Diclofenac Sodium) 50 Mg Tablet.dr 50 MG PO Q6H Y for back pain, #30 TAB 0 Refills Prov: CLARITZA HANDY DO 02/16/17 Cyclobenzaprine HCl (Cyclobenzaprine HCl) 10 Mg Tablet 10 MG PO Q8H Y for back spasm, #30 TAB 0 Refills Prov: CLARITZA HANDY DO 02/16/17 CLARITZA HANDY DO February 16, 2017 01:59
[2017-02-16] MEDS ORDERED: CYCLOBENZAPRINE 10 MG (FLEXERIL) TAB PO STA (02:11)
[2017-02-16] MEDS ORDERED: RX-TRAMADOL 50 MG (ULTRAM) TAB PPK#4 PO PRN (02:15)
[2017-02-16] MEDS ORDERED: KETOROLAC 60 MG/2 ML VIAL IM ONE (02:15)
[2017-02-16] MEDS ORDERED: CYCL10TA9 PO (02:17)
[2017-02-16] MEDS ORDERED: DICL50TA6 PO (02:18)
[2017-02-16 02:24] VITALS: BP 138/76
== END 2017-02-16 02:22 | disposition home or self-care (01) ==
LOC: EDUNIT# 01:45 → ER 01:48
DX: M54.2 Cervicalgia (principal); G89.29 Other chronic pain; E11.9 Type 2 diabetes mellitus without complications; I10 Essential (primary) hypertension; Z79.84 Long term (current) use of oral hypoglycemic drugs; Z79.82 Long term (current) use of aspirin; Z79.899 Other long term (current) drug therapy
CPT/HCPCS: 96372; 99283

== ENCOUNTER 2017-04-26 22:12 | Emergency (ER) | payer MEDICAID, OTHER ==
[~2017-04-26] VITALS: Ht 165.1 cm; Wt 131.5 kg
[~2017-04-26 22:12] MED LIST changes: +CYCL10TA9 PO; +DICL50TA6 PO
[2017-04-26] MEDS ORDERED: LIDOCAINE 2% 20 ML (XYLOCAINE) VIAL ONE (22:27)
[2017-04-26] MEDS ORDERED: RX-TRIMETH/SULFA. 160-800 MG (BACTRIM DS) TAB PPK#2 PO ONE (22:55)
[2017-04-26] MEDS ORDERED: RX-NAPROXEN (NAPROSYN) 250 MG TAB PPK#4 PO ONE (22:55)
[2017-04-26] MEDS ORDERED: CLINDAMYCIN 600 MG/4ML (CLEOCIN) VIAL ONE (22:55)
[2017-04-26 23:10] VITALS: BP 168/81
--- NOTE | 2017-04-27 00:49 | ED Integumentary General ---
General Chief Complaint: Skin/Wound Problems Stated Complaint: ABSCESS Nursing Triage Note: pt ambulated to room. pt complains of an abcess on her right upper thigh. pt states she has had it for about 3 days. pt has also been complaining of nausea and vomiting for 3 days as well. Source: patient History of Present Illness Time seen by provider: 22:25 Initial Comments PT STATES SHE HAS HAD AN ABSCESS TO RIGHT BUTTOCK X 3 DAYS HAS HAD HISTORY OF SAME MULTIPLE TIMES--STATES "YOU NEED TO NUMB IT UP, CUT IT OPEN, BREAK UP THE POCKETS, AND PUT A WICK IN IT. AND I NEED A SHOT OF ANTIBIOTICS, AND I NEED ORAL ANTIBIOTICS" PT HAS BEEN POKING AND SQUEEZING IT C/O NAUSEA, NO VOMITING C/O SUBJECTIVE FEVER AND SWEATS X 3 DAYS PT IS DIABETIC PT INSISTS ON I&D PCP: NORAH-DONNY, KERRY AGUILLON Allergies and Home Medications Allergies Coded Allergies: iodine (Unverified Allergy, Severe, HIVES, 11/27/16) doxycycline (Verified Allergy, Unknown, 11/08/16) hydromorphone (Verified Allergy, Unknown, 11/08/16) latex (Verified Allergy, Unknown, 11/08/16) metoclopramide (Verified Allergy, Unknown, 11/08/16) morphine (Verified Allergy, Unknown, 11/08/16) prochlorperazine (Verified Allergy, Unknown, 11/08/16) Home Medications Aspirin 81 Mg Tablet.dr, 81 MG PO, (Reported) Carvedilol 25 Mg Tablet, 25 MG PO BID, (Reported) Cyclobenzaprine HCl 10 Mg Tablet, 10 MG PO Q8H PRN for back spasm, #30 Ref 0 Prescribed by: CLARITZA HANDY on 02/16/17216 Diclofenac Sodium 50 Mg Tablet.dr, 50 MG PO Q6H PRN for back pain, #30 Ref 0 Prescribed by: CLARITZA HANDY on 02/16/17217 Fluoxetine HCl 40 Mg Capsule, 40 MG PO, (Reported) Glimepiride 4 Mg Tablet, 4 MG PO, (Reported) Lisinopril 40 Mg Tablet, 40 MG PO DAILY, (Reported) Meclizine HCl 25 Mg Tablet, 25-50 MG PO Q6H, #30 Prescribed by: SANJANA BARNETT on 11/08/162146 Metformin HCl 1,000 Mg Tablet, 1,000 MG PO, (Reported) Omeprazole 40 Mg Capsule.dr, 40 MG PO, (Reported) Ondansetron 4 Mg Tab.rapdis, 4 MG PO Q4H, #10 Prescribed by: SANJANA BARNETT on 11/08/162146 Scopolamine 1 Each Patch.td72, 1 EACH TD Q72 HOURS, #3 Prescribed by: SANJANA BARNETT on 11/08/162146 Sitagliptin Phosphate 100 Mg Tablet, 100 MG PO, (Reported) Constitutional: see HPI, diaphoresis, fever Respiratory: no symptoms reported Cardiovascular: no symptoms reported Gastrointestinal: nausea, No vomiting Genitourinary: no symptoms reported Musculoskeletal: see HPI Skin: see HPI Psychiatric/Neurological: No Symptoms Reported Endocrine: No Symptoms Reported Past Fhfkkch-Wsxlbc-Zoqwsd Hx Patient Social History Alcohol Use: Denies Use Recreational Drug Use: No Smoking Status: Current Everyday Smoker Type Used: Cigarettes 2nd Hand Smoke Exposure: Yes Recent Foreign Travel: No Contact w/Someone Who Travel: No Recent Infectious Disease Expo: No Recent Hopitalizations: No Immunizations Up To Date Tetanus Booster (TDap): Less than 5yrs Seasonal Allergies Seasonal Allergies: Yes Surgeries HX Surgeries: Yes Surgeries: Adenoidectomy, Gallbladder, Tonsillectomy Respiratory Hx Respiratory Disorders: Yes Respiratory Disorders: Asthma Cardiovascular Hx Cardiac Disorders: Yes (SVT) Cardiac Disorders: High Cholesterol, Hypertension, Irregular Heartbeat Neurological Hx Neurological Disorders: Yes Neurological Disorders: Headaches /Migraines, Neuropathy Genitourinary Hx Genitourinary Disorders: No Gastrointestinal Hx Gastrointestinal Disorders: Yes Gastrointestinal Disorders: Gastroesophageal Reflux Musculoskeletal Hx Musculoskeletal Disorders: Yes ("SPINAL STENOSIS" PER PT) Musculoskeletal Disorders: Degenerate Disk Disease, Fibromyalgia, Chronic Back Pain Endocrine Hx Endocrine Disorders: Yes (MORBID OBESITY) Endocrine Disorders: Diabetes, Non-Insulin dep HEENT HX ENT Disorders: No Cancer Hx Cancer: No Psychosocial Hx Psychiatric Problems: Yes Behavioral Health Disorders: Anxiety, Depression Integumentary HX Skin/Integumentary Disorder: Yes (MULTIPLE ABSCESSES--MRSA) Blood Transfusions Hx Blood Disorders: No Family Medical History Significant Family History: No Pertinent Family Hx Physical Exam Vital Signs Vital Sign - Last 12Hours 04/26/17 22:20 Temp 98.1 Pulse 100 Resp 17 B/P (MAP) 171/79 Pulse Ox 96 O2 Delivery Room Air Capillary Refill : Less Than 3 Seconds General Appearance: obese (MORBIDLY), other (DIRTY, MALODOROUS) Cardiovascular: regular rate, rhythm Respiratory: normal breath sounds Extremities: No other (RIGHT LOWER BUTTOCK WITH 4 CM AREA OF ERYTHEMA AND INDURATION WITH CENTRAL SCAB. VERY TENDER. NO AREAS OF FLUCTUANCE, NO DRAINAGE. NO STREAKS) Neurologic/Psychiatric: saw sharpener II-XII nml as tested, no motor/sensory deficits ( GROSSLY INTACT--HX OF NEUROPATHY), alert, normal mood/affect, oriented x 3 Skin: normal color, warm/dry, other ( ABOVE) I&D : Blade Size: 11 I & D Procedure: sterile drapes applied, sterile dressing applied, gauze wick placed, Wound Packing Packing/Drain: Idoform 1/ Progress AREA CLEANSED WITH CHLORHEXIDINE, INJECTED WITH 2% LIDOCAINE PLAIN STERILE DRAPES APPLIED INCISED WITH #11 BLADE NO PURULENT MATERIAL PRESENT PROBED --NO LOCULATIONS FOUND IRRIGATED WITH STERILE SALINE 1/4" IODOFORM GAUZE PACKING PLACED DRESSED WITH STERILE DRESSING PT TOLERATED WELL CULTURES OBTAINED FROM INCISION SPACE Progress/Results/Core Measures Results/Orders My Orders Orders - SANJANA BARNETT DO Lidocaine 2% Injection 20 Ml (Xylocaine (04/26/17 22:27) Rx-Naproxen (Rx-Naprosyn) (04/26/17 22:55) Rx-Trimeth/Sulfameth Ds Tab (Rx-Bactrim/ (04/26/17 22:55) Clindamycin Injection (Cleocin Injection (04/26/17 22:55) Wound Culture (04/27/17 00:13) Vital Signs/I&O Vital Sign - Last 12Hours 04/26/17 22:20 Temp 98.1 Pulse 100 Resp 17 B/P (MAP) 171/79 Pulse Ox 96 O2 Delivery Room Air Blood Pressure Mean: 109 Progress Note : Progress Note COMPUTERS DOWN. RX'S HAND WRITTEN FOR BACTRIM AND NAPROXEN. Departure Impression Impression: Primary Impression: Cellulitis of right buttock Additional Impressions: Hx MRSA infection NIDDM Disposition: 01 HOME, SELF-CARE Condition: Stable Departure-Patient Inst. Referrals: [facility] (PCP/Family) Primary Care Physician Patient Instructions: Abscess Incision and Drainage (DC), Cellulitis (Skin Infection), Adult (DC), Methicillin-Resistant Staphylococcus aureus (MRSA) Add. Discharge Instructions: CHANGE DRESSING TWICE A DAY LEAVE PACKING IN PLACE FOLLOW UP WITH [facility] IN 2 DAYS FOR FURTHER CARE All discharge instructions reviewed with patient and/or family. Voiced understanding. Images Torso/Trunk 1 - Moderate, Cellulitis SANJANA BARNETT DO Apr 27, 2017 00:49
== END 2017-04-26 23:10 | disposition home or self-care (01) ==
LOC: EDUNIT# 22:12 → ER 22:14
DX: L02.31 Cutaneous abscess of buttock (principal); E11.40 Type 2 diabetes mellitus with diabetic neuropathy, unspecified; G43.909 Migraine, unspecified, not intractable, without status migrainosus; M47.9 Spondylosis, unspecified; M54.9 Dorsalgia, unspecified; G89.29 Other chronic pain; E66.01 Morbid (severe) obesity due to excess calories; F41.9 Anxiety disorder, unspecified; F32.9 Major depressive disorder, single episode, unspecified; E78.00 Pure hypercholesterolemia, unspecified; I10 Essential (primary) hypertension; J45.909 Unspecified asthma, uncomplicated; F17.210 Nicotine dependence, cigarettes, uncomplicated; Z86.14 Personal history of Methicillin resistant Staphylococcus aureus infection; Z90.89 Acquired absence of other organs; Z79.82 Long term (current) use of aspirin; Z79.84 Long term (current) use of oral hypoglycemic drugs
CPT/HCPCS: 87070; 87077; 87186; 87205

== ENCOUNTER 2017-05-01 17:14 | Inpatient (IN) | payer MEDICAID, OTHER ==
[~2017-05-01] VITALS: Ht 165.1 cm; Wt 142.0 kg
[2017-05-01] MEDS ORDERED: ONDANSETRON 4 MG/2 ML (SDV) Z0FRAN IVP PRN (18:15)
[2017-05-01] MEDS ORDERED: KETOROLAC 30 MG/ML VIAL IVP STA (18:15)
--- NOTE | 2017-05-01 18:38 | Diagnostic Imaging Report ---
INDICATION: Supraventricular tachycardia. TECHNIQUE: Single view chest 6:27 PM. CORRELATION STUDY: 11/26/2016 and 11/08/2016 FINDINGS: Cardiac enlargement is present. Vascularity is within normal limits. The lung rose are suboptimally evaluated, particularly at the bases. Definitive infiltrate is not present. There does appear to be pleural thickening along the left chest wall versus effusion with likely prior traumatic changes of the left chest. IMPRESSION: Cardiac enlargement without failure. Likely pleural thickening from prior traumatic changes of the left chest wall. Dictated by: Dictated on workstation # [id number]
[2017-05-01 19:06] LABS: BASOPHILS # (AUTO) 0.1 10^3/uL (0.0-0.1); BASOPHILS % (AUTO) 1 % (0-10); EOSINOPHILS # (AUTO) 0.3 10^3/uL (0.0-0.3); EOSINOPHILS % (AUTO) 2 % (0-10); LYMPHOCYTES # (AUTO) 3.7 X 10^3 (1.0-4.0); LYMPHOCYTES % (AUTO) 32 % (12-44); MEAN CORPUSCULAR HEMOGLOBIN 27 PG (25-34); MEAN CORPUSCULAR HGB CONC 32 G/DL (32-36); MEAN CORPUSCULAR VOLUME 82 FL (80-99); MEAN PLATELET VOLUME 11.5 FL (7.4-10.4); MONOCYTES # (AUTO) 0.9 X 10^3 (0.0-1.0); MONOCYTES % (AUTO) 7 % (0-12); NEUTROPHILS # (AUTO) 6.8 X 10^3 (1.8-7.8); NEUTROPHILS % (AUTO) 58 % (42-75); PLATELET COUNT 393 10^3/uL (130-400); RED BLOOD COUNT 4.56 10^6/uL (4.35-5.85); RED CELL DISTRIBUTION WIDTH 15.1 % (10.0-14.5); WHITE BLOOD COUNT 11.7 10^3/uL (4.3-11.0)
[2017-05-01] MEDS: NS IV 1000 ML 4,000 ML IV PRN ×2 (19:07→19:12)
[2017-05-01 19:12] LABS: INR 1.1 (0.8-1.4); PROTHROMBIN TIME PATIENT 13.4 SEC (12.2-14.7)
--- NOTE | 2017-05-01 19:39 | ED Integumentary General ---
General Chief Complaint: Skin/Wound Problems Stated Complaint: R BUTTOCKS WOUND DRAINAGE/FEVER/VOMITING/DIZZY Nursing Triage Note: pt reports she was seen in ED last mon for same c/o. i&d done at that time. reports wound is now bleeding with serous drainage. Source: patient Exam Limitations: no limitations History of Present Illness Time seen by provider: 18:05 Initial Comments 42-year-old female patient presents to the emergency department for complaints of increasing pain and swelling of the right posterior thigh. Patient was seen in the emergency department last Monday for similar complaints with incision and drainage performed. States symptoms have progressively gotten worse. States she's been taking the Bactrim as prescribed. Timing/Duration: week, getting worse Location: extremities (right posterior thigh) Possible Cause: no cause identified Modifying Factors: worse with other (worse with palpation. No improvement with antibiotics.) Allergies and Home Medications Allergies Coded Allergies: iodine (Unverified Allergy, Severe, HIVES, 11/27/16) doxycycline (Verified Allergy, Unknown, 11/08/16) hydromorphone (Verified Allergy, Unknown, 11/08/16) latex (Verified Allergy, Unknown, 11/08/16) metoclopramide (Verified Allergy, Unknown, 11/08/16) morphine (Verified Allergy, Unknown, 11/08/16) prochlorperazine (Verified Allergy, Unknown, 11/08/16) Home Medications Aspirin 81 Mg Tablet.dr, 81 MG PO, (Reported) Carvedilol 25 Mg Tablet, 25 MG PO BID, (Reported) Cyclobenzaprine HCl 10 Mg Tablet, 10 MG PO Q8H PRN for back spasm, #30 Ref 0 Prescribed by: CLARITZA HANDY on 02/16/17216 Diclofenac Sodium 50 Mg Tablet.dr, 50 MG PO Q6H PRN for back pain, #30 Ref 0 Prescribed by: CLARITZA HANDY on 02/16/17 021 Fluoxetine HCl 40 Mg Capsule, 40 MG PO, (Reported) Gemfibrozil 600 Mg Tablet, 600 MG PO BID, (Reported) Glimepiride 4 Mg Tablet, 4 MG PO, (Reported) Lisinopril 40 Mg Tablet, 40 MG PO DAILY, (Reported) Meclizine HCl 25 Mg Tablet, 25-50 MG PO Q6H, #30 Prescribed by: SANJANA BARNETT on 11/08/162146 Metformin HCl 1,000 Mg Tablet, 1,000 MG PO, (Reported) Omeprazole 40 Mg Capsule.dr, 40 MG PO, (Reported) Ondansetron 4 Mg Tab.rapdis, 4 MG PO Q4H, #10 Prescribed by: SANJANA BARNETT on 11/08/162146 Pregabalin 50 Mg Capsule, 50 MG PO BID, (Reported) Scopolamine 1 Each Patch.td72, 1 EACH TD Q72 HOURS, #3 Prescribed by: SANJANA BARNETT on 11/08/162146 Sitagliptin Phosphate 100 Mg Tablet, 100 MG PO, (Reported) Constitutional: chills, fever, malaise Respiratory: no symptoms reported Cardiovascular: no symptoms reported Gastrointestinal: no symptoms reported Skin: see HPI Psychiatric/Neurological: No Symptoms Reported All Other Systems Reviewed Negative Unless Noted: Yes (Negative excepted noted.) Past Pfjsoow-Skfvbs-Upoqwk Hx Patient Social History Type Used: Cigarettes 2nd Hand Smoke Exposure: Yes Recent Foreign Travel: No Contact w/Someone Who Travel: No Recent Infectious Disease Expo: No Recent Hopitalizations: No Immunizations Up To Date Tetanus Booster (TDap): Less than 5yrs Seasonal Allergies Seasonal Allergies: Yes Surgeries HX Surgeries: Yes Surgeries: Adenoidectomy, Gallbladder, Tonsillectomy Respiratory Hx Respiratory Disorders: Yes Respiratory Disorders: Asthma Cardiovascular Hx Cardiac Disorders: Yes (SVT) Cardiac Disorders: High Cholesterol, Hypertension, Irregular Heartbeat Neurological Hx Neurological Disorders: Yes Neurological Disorders: Headaches /Migraines, Neuropathy Genitourinary Hx Genitourinary Disorders: No Gastrointestinal Hx Gastrointestinal Disorders: Yes Gastrointestinal Disorders: Gastroesophageal Reflux Musculoskeletal Hx Musculoskeletal Disorders: Yes ("SPINAL STENOSIS" PER PT) Musculoskeletal Disorders: Degenerate Disk Disease, Fibromyalgia, Chronic Back Pain Endocrine Hx Endocrine Disorders: Yes (MORBID OBESITY) Endocrine Disorders: Diabetes, Non-Insulin dep HEENT HX ENT Disorders: No Cancer Hx Cancer: No Psychosocial Hx Psychiatric Problems: Yes Behavioral Health Disorders: Anxiety, Depression Integumentary HX Skin/Integumentary Disorder: Yes (MULTIPLE ABSCESSES--MRSA) Blood Transfusions Hx Blood Disorders: No Reviewed Nursing Assessment Reviewed/Agree w Nursing PMH: Yes Family Medical History Significant Family History: No Pertinent Family Hx Physical Exam Vital Signs Vital Sign - Last 12Hours 05/01/17 17:32 Temp 96.9 Pulse 98 Resp 16 B/P (MAP) 170/83 Capillary Refill : Less Than 3 Seconds General Appearance: WD/WN, no apparent distress Cardiovascular: regular rate, rhythm, no murmur Respiratory: lungs clear, normal breath sounds, no respiratory distress Gastrointestinal: normal bowel sounds, non tender, soft Back: normal inspection Extremities: normal range of motion, normal capillary refill, other (12 x 10 cm area of induration of the right posterior thigh with mild erythema and warmth. Small amount of blood-tinged, purulent drainage noted from the wound.) Neurologic/Psychiatric: alert, normal mood/affect, oriented x 3 Skin: normal color, warm/dry, other (12 x 10 cm area of induration of the right posterior thigh with mild erythema and warmth. Small amount of blood- tinged, purulent drainage noted from the wound.) Skin Problem Location: lower extremities (right posterior thigh) Skin Problem Character: abscess, erythema, tenderness, warm Progress/Results/Core Measures Results/Orders Lab Results Laboratory Tests Test 05/01/17 18:52 05/01/17 19:00 05/01/17 19:34 Range/Units White Blood Count 11.7 H 4.3-11.0 10^3/uL Red Blood Count 4.56 4.35-5.85 10^6/uL Hemoglobin 12.1 11.5-16.0 G/DL Hematocrit 37 35-52 % Mean Corpuscular Volume 82 80-99 FL Mean Corpuscular Hemoglobin 27 25-34 PG Mean Corpuscular Hemoglobin Concent 32 32-36 G/DL Red Cell Distribution Width 15.1 H 10.0-14.5 % Platelet Count 393 130-400 10^3/uL Mean Platelet Volume 11.5 H 7.4-10.4 FL Neutrophils (%) (Auto) 58 42-75 % Lymphocytes (%) (Auto) 32 12-44 % Monocytes (%) (Auto) 7 0-12 % Eosinophils (%) (Auto) 2 0-10 % Basophils (%) (Auto) 1 0-10 % Neutrophils # (Auto) 6.8 1.8-7.8 X 10^3 Lymphocytes # (Auto) 3.7 1.0-4.0 X 10^3 Monocytes # (Auto) 0.9 0.0-1.0 X 10^3 Eosinophils # (Auto) 0.3 0.0-0.3 10^3/uL Basophils # (Auto) 0.1 0.0-0.1 10^3/uL Prothrombin Time 13.4 12.2-14.7 SEC INR Comment 1.1 0.8-1.4 Activated Partial Thromboplast Time 29 24-35 SEC Urine Color YELLOW Urine Clarity CLEAR Urine pH 5 5-9 Urine Specific [place] 1.020 1.016-1.022 Urine Protein 1+ H NEGATIVE Urine Glucose (UA) 4+ H NEGATIVE Urine Ketones NEGATIVE NEGATIVE Urine Nitrite NEGATIVE NEGATIVE Urine Bilirubin NEGATIVE NEGATIVE Urine Urobilinogen NORMAL NORMAL MG/DL Urine Leukocyte Esterase NEGATIVE NEGATIVE Urine RBC (Auto) NEGATIVE NEGATIVE Urine RBC NONE /HPF Urine WBC NONE /HPF Urine Squamous Epithelial Cells 25-50 H /HPF Urine Crystals NONE /LPF Urine Bacteria FEW H /HPF Urine Casts NONE /LPF Urine Mucus NEGATIVE /LPF Urine Culture Indicated NO Sodium Level 133 L 135-145 MMOL/L Potassium Level 4.4 3.6-5.0 MMOL/L Chloride Level 100 98-107 MMOL/L Carbon Dioxide Level 21 21-32 MMOL/L Anion Gap 12 5-14 MMOL/L Blood Urea Nitrogen 13 7-18 MG/DL Creatinine 0.74 0.60-1.30 MG/DL Estimat Glomerular Filtration Rate > 60 BUN/Creatinine Ratio 18 Glucose Level 264 H 70-105 MG/DL Lactic Acid Level 1.28 0.50-2.00 MMOL/L Calcium Level 9.1 8.5-10.1 MG/DL Total Bilirubin 0.3 0.1-1.0 MG/DL Aspartate Amino Transf (AST/SGOT) 6 5-34 U/L Alanine Aminotransferase (ALT/SGPT) 12 0-55 U/L Alkaline Phosphatase 65 40-136 U/L Total Protein 6.7 6.4-8.2 GM/DL Albumin 3.3 3.2-4.5 GM/DL My Orders Orders - JOSE ANGEL THAKUR Cbc With Automated Diff (05/01/17 18:15) Comprehensive Metabolic Panel (05/01/17 18:15) Lactic Acid Analyzer (05/01/17 18:15) Blood Culture (05/01/17 18:15) Ua Culture If Indicated (05/01/17 18:15) Protime With Inr (05/01/17 18:15) Partial Thromboplastin Time (05/01/17 18:15) Chest 1 View, Ap/Pa Only (05/01/17 18:15) Ondansetron Injection (Zofran Injectio (05/01/17 18:15) Saline Lock/Iv-Start (05/01/17 18:15) Ns Iv 1000 Ml (Sodium Chloride 0.9%) (05/01/17 18:15) Vital Signs Adult Sepsis Patie Q1HR (05/01/17 18:15) Remove Rings In Anticipation O (05/01/17 18:15) Ketorolac Injection (Toradol Injection) (05/01/17 18:15) Medications Given in ED Current Medications Medications Dose Ordered Sig/[place] Route Start Time Stop Time Status Last Admin Dose Admin Ondansetron HCl 4 mg ONCE PRN IVP 05/01/17 18:15 05/01/17 19:07 DC 05/01/17 19:06 4 MG Vital Signs/I&O Vital Sign - Last 12Hours 05/01/17 17:32 Temp 96.9 Pulse 98 Resp 16 B/P (MAP) 170/83 Blood Pressure Mean: 112 Departure Communication Time/Spoke to Admitting Phy: 21:[address] Farley excepts patient to her medical service for IV antibiotics, possible PICC line placement, and pain management. Progress Notes Laboratory findings, diagnostic study findings, plan for admission discussed with the patient. Wound culture results from previous ED visit reviewed. Patient voices understanding and wishes to proceed with inpatient treatment. Plan for admission discussed with Dr. Brock, he agrees with the plan of care. Impression Impression: Primary Impression: Abscess of right thigh Additional Impressions: failed outpatient antibiotics Diabetes mellitus with hyperglycemia Disposition: ADMITTED INPATIENT Condition: Stable Decision to Admit Reason: Admit from ER (General) Decision to Admit/Date: May 01, 2017 Time/Decision to Admit Time: 21:00 Departure-Patient Inst. Referrals: [facility] (PCP/Family) Primary Care Physician JOSE ANGEL THAKUR May 01, 2017 19:39
[2017-05-01 19:47] LABS: KETONES,URINE NEGATIVE (NEGATIVE); PH,URINE 5 (5-9); PROTEIN,URINE 1+ (NEGATIVE)
[2017-05-01 19:48] LABS: BILIRUBIN,URINE NEGATIVE (NEGATIVE); LEUKOCYTE ESTERASE ,URINE NEGATIVE (NEGATIVE); NITRITE,URINE NEGATIVE (NEGATIVE); SQUAMOUS EPITHELIAL CELL,UR 25-50 /HPF; UROBILINOGEN,URINE NORMAL (NORMAL)
[2017-05-01 19:58] LABS: ALANINE AMINOTRANSFERASE 12 U/L (0-55); ALBUMIN 3.3 GM/DL (3.2-4.5); ANION GAP 12 MMOL/L (5-14); ASPARTATE AMINO TRANSFERASE 6 U/L (5-34); BILIRUBIN,TOTAL 0.3 MG/DL (0.1-1.0); BLOOD UREA NITROGEN 13 MG/DL (7-18); BUN/CREATININE RATIO 18; CALCIUM 9.1 MG/DL (8.5-10.1); CARBON DIOXIDE 21 MMOL/L (21-32); CHLORIDE 100 MMOL/L (98-107); CREATININE SERUM 0.74 MG/DL (0.60-1.30); GFR ESTIMATED > 60; GLUCOSE 264 MG/DL (70-105); POTASSIUM 4.4 MMOL/L (3.6-5.0); SODIUM 133 MMOL/L (135-145); TOTAL PROTEIN 6.7 GM/DL (6.4-8.2)
[2017-05-01] MEDS ORDERED: VANCOMYCIN INJECTION 1,000 MG in NS (IVPB) 250 ML IV ONE (20:45)
[2017-05-01 21:45] VITALS: BP 166/83
[2017-05-01] MEDS ORDERED: NS IV 1000 ML 1,000 ML IV SCH (23:00)
[2017-05-01] MEDS: fentaNYL INJECTION 100 MCG/2 ML AMP IV PRN (23:38)
[2017-05-01] MEDS: NS IV 1000 ML 1,000 ML IV SCH (23:45)
[2017-05-01] MEDS ORDERED: VANCOMYCIN 750 MG/NS 250 ML IVPB IV ONE ×2 (23:45)
[2017-05-02] VITALS: BP 153/68
[2017-05-02] MEDS ORDERED: PREG50CA2 PO (00:59)
[2017-05-02] MEDS ORDERED: GEMF600T3 PO (01:00)
[2017-05-02] MEDS: fentaNYL INJECTION 100 MCG/2 ML AMP IV PRN ×7 (02:38→21:07)
[2017-05-02 04:00] VITALS: BP 188/90
[2017-05-02] MEDS: inSUlin (REGULAR) HUMAN 1 UNIT/0.01 ML (CHARGE PER UNIT) SC SCH ×4 (05:47→22:31)
[2017-05-02] MEDS: NS IV 1000 ML 1,000 ML IV SCH ×3 (06:13→22:35)
[2017-05-02 06:16] LABS: BASOPHILS # (AUTO) 0.1 10^3/uL (0.0-0.1); BASOPHILS % (AUTO) 1 % (0-10); EOSINOPHILS # (AUTO) 0.3 10^3/uL (0.0-0.3); EOSINOPHILS % (AUTO) 3 % (0-10); LYMPHOCYTES # (AUTO) 4.2 X 10^3 (1.0-4.0); LYMPHOCYTES % (AUTO) 42 % (12-44); MEAN CORPUSCULAR HEMOGLOBIN 27 PG (25-34); MEAN CORPUSCULAR HGB CONC 33 G/DL (32-36); MEAN CORPUSCULAR VOLUME 82 FL (80-99); MEAN PLATELET VOLUME 10.8 FL (7.4-10.4); MONOCYTES # (AUTO) 0.8 X 10^3 (0.0-1.0); MONOCYTES % (AUTO) 8 % (0-12); NEUTROPHILS # (AUTO) 4.6 X 10^3 (1.8-7.8); NEUTROPHILS % (AUTO) 46 % (42-75); PLATELET COUNT 355 10^3/uL (130-400); RED BLOOD COUNT 4.45 10^6/uL (4.35-5.85); RED CELL DISTRIBUTION WIDTH 14.2 % (10.0-14.5); WHITE BLOOD COUNT 10.1 10^3/uL (4.3-11.0)
[2017-05-02 06:33] LABS: ALANINE AMINOTRANSFERASE 12 U/L (0-55); ALBUMIN 3.3 GM/DL (3.2-4.5); ANION GAP 8 MMOL/L (5-14); ASPARTATE AMINO TRANSFERASE 10 U/L (5-34); BILIRUBIN,TOTAL 0.3 MG/DL (0.1-1.0); BLOOD UREA NITROGEN 13 MG/DL (7-18); BUN/CREATININE RATIO 17; CALCIUM 9.1 MG/DL (8.5-10.1); CARBON DIOXIDE 25 MMOL/L (21-32); CHLORIDE 100 MMOL/L (98-107); CREATININE SERUM 0.77 MG/DL (0.60-1.30); GFR ESTIMATED > 60; GLUCOSE 247 MG/DL (70-105); POTASSIUM 4.2 MMOL/L (3.6-5.0); SODIUM 133 MMOL/L (135-145)
--- NOTE | 2017-05-02 08:21 | History & Physicial (CHS) ---
DELILAH SONG MED STUDENT 05/02/17 8:21am: HPI History of Present Illness: Patient is a 42 year old woman with history of multiple cysts who presented to the ER 05/01/2017 in the evening with and abscess on the right posterior thigh that failed I&D, IM clindamycin and PO Bactrim. Patient first came into the ER last Monday for what she thought was a pimple, increasing erythema and tenderness around the area, and fever and vomiting. On I&D no purulent discharge was present. Patient was given a single dose IM clindamycin and PO Bactrim. After discharge patient noticed increased pain in the area as well as continued fever and vomiting. She had been changing the bandage 2-3 X /day She also noted yesterday evening a green bloody discharge from the lesion and increased pain which brought her into the ER. She was admitted, a CXR was obtained and was started on IV Vancomycin. She has not had any bowel movements since being admitted. No complaints about urination. Patient said she still feels nausea and that she had vomited this morning. She notes that pain is decreasing in severity and thinks the antibiotics are working. Source: patient Date seen by provider: May 02, 2017 Time Seen by Provider: 09:30 Attending Physician Vadim Farley MD PCP [facility] Date of Admission May 01, 2017 at 20:24 Home Medications Home Medications Reviewed patient Home Medication Reconciliation Form Allergies Coded Allergies: iodine (Unverified Allergy, Severe, HIVES, 11/27/16) doxycycline (Verified Allergy, Unknown, 11/08/16) hydromorphone (Verified Allergy, Unknown, 11/08/16) latex (Verified Allergy, Unknown, 11/08/16) metoclopramide (Verified Allergy, Unknown, 11/08/16) morphine (Verified Allergy, Unknown, 11/08/16) prochlorperazine (Verified Allergy, Unknown, 11/08/16) YGK-Zcosnd-Oawxka Hx Patient Social History Alcohol Use: Rarely Uses Recreational Drug Use: No Smoking Status: Current Everyday Smoker Type Used: Cigarettes 2nd Hand Smoke Exposure: Yes Recent Foreign Travel: No Contact w/other who traveled: No Recent Hopitalizations: No Recent Infectious Disease Expo: No Physical Abuse Screen: Yes Sexual Abuse: No Immunizations Up To Date Tetanus Booster (TDap): Less than 5yrs Past Medical History Multiple cysts, Diabetes, SVT, HTN, hyperlipidemia. TNA (1988), cholecystectomy (1996), Cat Scratch Fever (1989) Family Medical History Significant Family History: No Pertinent Family Hx Review of Systems (CHC) Constitutional: see HPI Physical Exam-(CHC) Physical Exam Vital Signs VS - Last 72 Hours, by Label 05/01/17 05/01/17 05/01/17 05/01/17 17:32 21:10 21:45 23:59 Temp 96.9 97.5 Pulse 98 78 87 Resp 16 18 20 B/P (MAP) 170/83 166/83 Pulse Ox 99 97 97 O2 Delivery Room Air Room Air 05/02/17 05/02/17 05/02/17 00:00 04:00 08:23 Temp 96.6 96.3 96.9 Pulse 89 84 82 Resp 20 20 20 B/P (MAP) 153/68 188/90 160/77 Pulse Ox 95 95 93 O2 Delivery Room Air Room Air Room Air Capillary Refill : Less Than 3 Seconds General Appearance: mild distress (Nausea and Vomiting) Respiratory: lungs clear, normal breath sounds, no respiratory distress Cardiovascular: regular rate, rhythm, no murmur Assessment/Plan Assessment/Plan Admission Dx Abscess/Cellulitis on Buttocks by MRSA Plan Continue IV Vancomycin Diagnosis/Problems: (1) Cellulitis and abscess of right lower extremity Assessment & Plan: Continue IV Vancomycin and Observe Clinical Quality Measures DVT/VTE Risk/Contraindication: Risk Factor Score Per Nursin RFS Level Per Nursing on Admit: 3=High VADIM FARLEY MD 05/02/17 10:56am: Home Medications Allergies Coded Allergies: iodine (Unverified Allergy, Severe, HIVES, 11/27/16) doxycycline (Verified Allergy, Unknown, 11/08/16) hydromorphone (Verified Allergy, Unknown, 11/08/16) latex (Verified Allergy, Unknown, 11/08/16) metoclopramide (Verified Allergy, Unknown, 11/08/16) morphine (Verified Allergy, Unknown, 11/08/16) prochlorperazine (Verified Allergy, Unknown, 11/08/16) USS-Tilmpi-Zavsrc Hx Patient Social History Alcohol Use: Denies Use Smoking Status: Current Everyday Smoker Family Medical History Significant Family History: No Pertinent Family Hx Reviewed Test Results Reviewed Test Results Lab Laboratory Tests Test 05/01/17 18:52 05/01/17 19:00 05/01/17 19:34 05/02/17 05:08 Range/Units White Blood Count 11.7 H 4.3-11.0 10^3/uL Red Blood Count 4.56 4.35-5.85 10^6/uL Hemoglobin 12.1 11.5-16.0 G/DL Hematocrit 37 35-52 % Mean Corpuscular Volume 82 80-99 FL Mean Corpuscular Hemoglobin 27 25-34 PG Mean Corpuscular Hemoglobin Concent 32 32-36 G/DL Red Cell Distribution Width 15.1 H 10.0-14.5 % Platelet Count 393 130-400 10^3/uL Mean Platelet Volume 11.5 H 7.4-10.4 FL Neutrophils (%) (Auto) 58 42-75 % Lymphocytes (%) (Auto) 32 12-44 % Monocytes (%) (Auto) 7 0-12 % Eosinophils (%) (Auto) 2 0-10 % Basophils (%) (Auto) 1 0-10 % Neutrophils # (Auto) 6.8 1.8-7.8 X 10^3 Lymphocytes # (Auto) 3.7 1.0-4.0 X 10^3 Monocytes # (Auto) 0.9 0.0-1.0 X 10^3 Eosinophils # (Auto) 0.3 0.0-0.3 10^3/uL Basophils # (Auto) 0.1 0.0-0.1 10^3/uL Prothrombin Time 13.4 12.2-14.7 SEC INR Comment 1.1 0.8-1.4 Activated Partial Thromboplast Time 29 24-35 SEC Urine Color YELLOW Urine Clarity CLEAR Urine pH 5 5-9 Urine Specific [place] 1.020 1.016-1.022 Urine Protein 1+ H NEGATIVE Urine Glucose (UA) 4+ H NEGATIVE Urine Ketones NEGATIVE NEGATIVE Urine Nitrite NEGATIVE NEGATIVE Urine Bilirubin NEGATIVE NEGATIVE Urine Urobilinogen NORMAL NORMAL MG/DL Urine Leukocyte Esterase NEGATIVE NEGATIVE Urine RBC (Auto) NEGATIVE NEGATIVE Urine RBC NONE /HPF Urine WBC NONE /HPF Urine Squamous Epithelial Cells 25-50 H /HPF Urine Crystals NONE /LPF Urine Bacteria FEW H /HPF Urine Casts NONE /LPF Urine Mucus NEGATIVE /LPF Urine Culture Indicated NO Sodium Level 133 L 135-145 MMOL/L Potassium Level 4.4 3.6-5.0 MMOL/L Chloride Level 100 98-107 MMOL/L Carbon Dioxide Level 21 21-32 MMOL/L Anion Gap 12 5-14 MMOL/L Blood Urea Nitrogen 13 7-18 MG/DL Creatinine 0.74 0.60-1.30 MG/DL Estimat Glomerular Filtration Rate > 60 BUN/Creatinine Ratio 18 Glucose Level 264 H 70-105 MG/DL Lactic Acid Level 1.28 0.50-2.00 MMOL/L Calcium Level 9.1 8.5-10.1 MG/DL Total Bilirubin 0.3 0.1-1.0 MG/DL Aspartate Amino Transf (AST/SGOT) 6 5-34 U/L Alanine Aminotransferase (ALT/SGPT) 12 0-55 U/L Alkaline Phosphatase 65 40-136 U/L Total Protein 6.7 6.4-8.2 GM/DL Albumin 3.3 3.2-4.5 GM/DL Glucometer 258 H 70-110 MG/DL Test 05/02/17 06:10 Range/Units White Blood Count 10.1 4.3-11.0 10^3/uL Red Blood Count 4.45 4.35-5.85 10^6/uL Hemoglobin 11.9 11.5-16.0 G/DL Hematocrit 36 35-52 % Mean Corpuscular Volume 82 80-99 FL Mean Corpuscular Hemoglobin 27 25-34 PG Mean Corpuscular Hemoglobin Concent 33 32-36 G/DL Red Cell Distribution Width 14.2 10.0-14.5 % Platelet Count 355 130-400 10^3/uL Mean Platelet Volume 10.8 H 7.4-10.4 FL Neutrophils (%) (Auto) 46 42-75 % Lymphocytes (%) (Auto) 42 12-44 % Monocytes (%) (Auto) 8 0-12 % Eosinophils (%) (Auto) 3 0-10 % Basophils (%) (Auto) 1 0-10 % Neutrophils # (Auto) 4.6 1.8-7.8 X 10^3 Lymphocytes # (Auto) 4.2 H 1.0-4.0 X 10^3 Monocytes # (Auto) 0.8 0.0-1.0 X 10^3 Eosinophils # (Auto) 0.3 0.0-0.3 10^3/uL Basophils # (Auto) 0.1 0.0-0.1 10^3/uL Sodium Level 133 L 135-145 MMOL/L Potassium Level 4.2 3.6-5.0 MMOL/L Chloride Level 100 98-107 MMOL/L Carbon Dioxide Level 25 21-32 MMOL/L Anion Gap 8 5-14 MMOL/L Blood Urea Nitrogen 13 7-18 MG/DL Creatinine 0.77 0.60-1.30 MG/DL Estimat Glomerular Filtration Rate > 60 BUN/Creatinine Ratio 17 Glucose Level 247 H 70-105 MG/DL Calcium Level 9.1 8.5-10.1 MG/DL Total Bilirubin 0.3 0.1-1.0 MG/DL Aspartate Amino Transf (AST/SGOT) 10 5-34 U/L Alanine Aminotransferase (ALT/SGPT) 12 0-55 U/L Alkaline Phosphatase 67 40-136 U/L Total Protein 7.0 6.4-8.2 GM/DL Albumin 3.3 3.2-4.5 GM/DL Physical Exam-([facility]) Physical Exam Vital Signs VS - Last 72 Hours, by Label 05/01/17 05/01/17 05/01/17 05/01/17 17:32 21:10 21:45 23:59 Temp 96.9 97.5 Pulse 98 78 87 Resp 16 18 20 B/P (MAP) 170/83 166/83 Pulse Ox 99 97 97 O2 Delivery Room Air Room Air 05/02/17 05/02/17 05/02/17 00:00 04:00 08:23 Temp 96.6 96.3 96.9 Pulse 89 84 82 Resp 20 20 20 B/P (MAP) 153/68 188/90 160/77 Pulse Ox 95 95 93 O2 Delivery Room Air Room Air Room Air Assessment/Plan Assessment/Plan Diagnosis/Problems: (1) Cellulitis and abscess of right lower extremity Assessment & Plan: Continue IV Vancomycin and Observe Supervisory-Addendum Brief Supervisory Addendum Patient seen and examined by me in addition to MS3 Delilah Song. Agree with documentation except as noted here. Will change from vancomycin back to Bactrim as MRSA culture from abscess was sensitive to Bactrim and monitor inpatient to ensure improvement before d/c. Is continuing to drain through previous incision , but if drainage decreases and induration remains, may need further debridement. DELILAH SONG MED STUDENT May 02, 2017 8:21 am VADIM FARLEY MD May 02, 2017 10:56 am
[2017-05-02 08:23] VITALS: BP_SYST 160; BP_SYST 188; BP_DIAS 77; BP_DIAS 90
[2017-05-02] MEDS ORDERED: VANCOMYCIN INJECTION 1,500 MG in NS IV 500 ML 500 ML IV SCH (09:00)
[2017-05-02] MEDS ORDERED: PROMETHAZINE INJ 25 MG/ML (PHENERGAN) AMP IVP NR (09:31)
[2017-05-02] MEDS ORDERED: OMEP20CA12 PO (11:14)
[2017-05-02] MEDS ORDERED: LOVA10TA PO (11:14)
[2017-05-02] MEDS ORDERED: CYCL10TA9 PO (11:14)
[2017-05-02] MEDS ORDERED: DIPH25CA79 PO (11:15)
[2017-05-02] MEDS ORDERED: NAPR1TAB25 PO (11:15)
[2017-05-02] MEDS ORDERED: LOVA20TA2 PO (11:33)
[2017-05-02 12:00] VITALS: BP 166/90
[2017-05-02 16:22] VITALS: BP 162/78
[2017-05-02] MEDS: TRIM/SULFAMETH 160/800 (SEPTRA DS) TAB PO SCH (17:13)
[2017-05-02] MEDS: metFORMIN 500 MG (GLUCOPHAGE) TAB PO SCH (17:13)
[2017-05-02] MEDS: GLIMEPIRIDE 4 MG (AMARYL) TAB PO SCH (17:13)
[2017-05-02 19:40] VITALS: BP 162/95
[2017-05-02] MEDS: PREGABALIN 50 MG (LYRICA) CAP PO SCH (20:08)
[2017-05-02] MEDS: CARVEDILOL 12.5 MG (COREG) TABLET PO SCH (20:08)
[2017-05-02] MEDS ORDERED: NON-FORMULARY MEDICATION 1 EA EA (Lisinopril 40 MG) PO SCH (21:00)
[2017-05-02] MEDS ORDERED: NON-FORMULARY MEDICATION 1 EA EA (Metformin HCl 1,000 MG) PO SCH (21:00)
[2017-05-02] MEDS ORDERED: ASPIRIN E.C. 81 MG (ECOTRIN) TAB PO SCH (21:00)
[2017-05-02] MEDS ORDERED: NON-FORMULARY MEDICATION 1 EA EA (Carvedilol 25 MG) PO SCH (21:00)
[2017-05-02] MEDS ORDERED: NON-FORMULARY MEDICATION 1 EA EA (Fluoxetine HCl (Prozac) 40 MG) PO SCH (21:00)
[2017-05-02] MEDS ORDERED: NON-FORMULARY MEDICATION 1 EA EA (Sitagliptin Phosphate (Januvia) 100 MG) PO SCH (21:00)
[2017-05-02] MEDS ORDERED: sitaGLIPtin 50 MG (JANUVIA) TAB PO SCH (21:00)
[2017-05-02] MEDS ORDERED: lisINopril 20 MG (ZESTRIL) TAB PO SCH (21:00)
[2017-05-02] MEDS ORDERED: OMEPRAZOLE 20 MG (PriLOSEC) CAP NON-FORMULARY PO SCH (21:00)
[2017-05-02] MEDS ORDERED: PANTOPRAZOLE 40 MG (PROTONIX) TAB PO SCH (21:00)
[2017-05-02] MEDS ORDERED: FLUoxetine HCL 20 MG (PROzac) CAP PO SCH (21:00)
[2017-05-02] MEDS: ONDANSETRON 4 MG/2 ML (SDV) Z0FRAN IV PRN (21:07)
[2017-05-02] MEDS: GEMFIBROZIL 600 MG (LOPID) TAB PO SCH ×2 (21:07→21:35)
[2017-05-02] MEDS ORDERED: VANCOMYCIN INJECTION 1,250 MG in NS (IVPB) 250 ML IV SCH (22:00)
[2017-05-03] VITALS: BP 168/86
[2017-05-03] MEDS: fentaNYL INJECTION 100 MCG/2 ML AMP IV PRN ×4 (00:11→09:27)
[2017-05-03 03:20] VITALS: BP 160/84
[2017-05-03] MEDS: NS IV 1000 ML 1,000 ML IV SCH ×3 (05:42→14:15)
[2017-05-03] MEDS: ONDANSETRON 4 MG/2 ML (SDV) Z0FRAN IV PRN (06:24)
[2017-05-03] MEDS: TRIM/SULFAMETH 160/800 (SEPTRA DS) TAB PO SCH ×2 (06:37→17:11)
[2017-05-03] MEDS: inSUlin (REGULAR) HUMAN 1 UNIT/0.01 ML (CHARGE PER UNIT) SC SCH ×3 (06:38→17:11)
[2017-05-03] MEDS: metFORMIN 500 MG (GLUCOPHAGE) TAB PO SCH ×2 (06:40→17:11)
[2017-05-03 06:55] LABS: MEAN PLATELET VOLUME 10.4 FL (7.4-10.4); RED BLOOD COUNT 4.12 10^6/uL (4.35-5.85); RED CELL DISTRIBUTION WIDTH 14.1 % (10.0-14.5); WHITE BLOOD COUNT 9.3 10^3/uL (4.3-11.0)
[2017-05-03 07:13] LABS: ANION GAP 10 MMOL/L (5-14); BLOOD UREA NITROGEN 8 MG/DL (7-18); BUN/CREATININE RATIO 12; CALCIUM 8.8 MG/DL (8.5-10.1); CARBON DIOXIDE 24 MMOL/L (21-32); CHLORIDE 100 MMOL/L (98-107); CREATININE SERUM 0.69 MG/DL (0.60-1.30); GFR ESTIMATED > 60; GLUCOSE 171 MG/DL (70-105); POTASSIUM 4.1 MMOL/L (3.6-5.0); SODIUM 134 MMOL/L (135-145)
[2017-05-03] MEDS ORDERED: TROUGH ORDER-PHARMACY XX NR (08:00)
[2017-05-03] MEDS: PREGABALIN 50 MG (LYRICA) CAP PO SCH (08:16)
[2017-05-03] MEDS: CARVEDILOL 12.5 MG (COREG) TABLET PO SCH (08:16)
[2017-05-03] MEDS: GEMFIBROZIL 600 MG (LOPID) TAB PO SCH (08:16)
[2017-05-03 08:18] VITALS: BP 157/82
[2017-05-03] MEDS ORDERED: HYDROcodone/APAP 5 MG/325 MG (LORTAB) TAB PO PRN (11:45)
[2017-05-03] MEDS ORDERED: PROMETHAZINE 25 MG (PHENERGAN) TAB PO PRN (11:45)
[2017-05-03] MEDS ORDERED: PROM25TA14 PO (15:08)
[2017-05-03] MEDS ORDERED: SULF1TAB35 PO (15:08)
[2017-05-03] MEDS ORDERED: HYDR-3812 PO (15:08)
--- NOTE | 2017-05-03 15:11 | Discharge Instructions ---
Discharge [facility] Discharge Medications New, Converted or Re-Newed RX: Transmitted to Pharmacy New Medications: Hydrocodone/Acetaminophen (Hydrocodon -Acetaminophen 5-325) 1 Each Tablet 1 TAB PO Q4H PRN for PAIN-MODERATE, #15 TAB 0 Refills Promethazine HCl (Promethazine Tablet) 25 Mg Tablet 25 MG PO Q4H PRN for NAUSEA/VOMITING-2ND LINE, #30 TAB 0 Refills Sulfamethoxazole/Trimethoprim (Bactrim Ds Tablet) 1 Each Tablet 1 EA PO BID WITH MEALS, #20 TAB 0 Refills Continued Medications: Aspirin (Aspir 81) 81 Mg Tablet.dr 81 MG PO HS, TAB Carvedilol (Carvedilol) 25 Mg Tablet 25 MG PO BID, TAB Cyclobenzaprine HCl (Cyclobenzaprine HCl) 10 Mg Tablet 10 MG PO Q8H, TAB Diphenhydramine HCl (Benadryl) 25 Mg Capsule 75 MG PO HS PRN for ALLERGIES, CAP Fluoxetine HCl (Prozac) 40 Mg Capsule 40 MG PO HS, CAP Gemfibrozil (Gemfibrozil) 600 Mg Tablet 600 MG PO BID, TAB LAST FILLED 02-28-17 #60 Glimepiride (Glimepiride) 4 Mg Tablet 4 MG PO HS, TAB LAST FILLED 01-04-17 #90 Lisinopril (Lisinopril) 40 Mg Tablet 40 MG PO HS, TAB LAST FILLED 01-04-17 #90 Lovastatin (Lovastatin) 20 Mg Tablet 20 MG PO HS, TAB LAST FILLED #60 17 Metformin HCl (Metformin HCl) 1,000 Mg Tablet 1000 MG PO BID, TAB Naproxen Na-Diphenhydramin HCl (Aleve Pm Caplet) 1 Each Tablet 2 TAB PO HS, TAB Omeprazole (Omeprazole) 20 Mg Capsule.dr 40 MG PO HS, CAP TAKES 2 (20MG) CAPSULES Pregabalin (Lyrica) 50 Mg Capsule 50 MG PO BID, CAP Sitagliptin Phosphate (Januvia) 100 Mg Tablet 100 MG PO HS, TAB LAST FILLED #90 01-04-17 Patient Instructions Goal/Follow Up Appt: Follow up with Dr. Thakkar on May 08 at 10:40 am. Patient Instructions: Change dressing whenever saturated, cover wound with gauze covered by tape. Return to The Hospital For: Fever, inability to keep antibiotics down Activity & Diet Discharge Diet: ADA Diet Activity as Tolerated: Yes Copy Copies To 1: YINKA THAKKAR MD, BETHANY N MD May 03, 2017 15:11
--- NOTE | 2017-05-03 15:19 | Discharge Summary ---
Diagnosis/Chief Complaint Date of Admission May 01, 2017 at 8:24 pm Date of Discharge May 03, 2017 Admission Diagnosis Admission Diagnosis MRSA Cellulitis with abscess and leukocytosis Uncontrolled DM2 Discharge Diagnosis MRSA Cellulitis with abscess and leukocytosis: I&D had already been done in ER a couple of days prior and Bactrim prescribed which patient reported taking, however review of external med history and pharmacy notes does not note a script filled for Bactrim. On admission started on vancomycin, next morning changed from vancomycin back to Bactrim as MRSA culture from abscess was sensitive to Bactrim and monitor inpatient to ensure improvement before d/c. Wound continued to drain well, erythema and induration decreased and leukocytosis resolved. Had pain and nausea/vomiting, given hydrocodone/apap 15 tabs and promethazine on d/c. Uncontrolled DMII: resumed home meds and diabetic diet with improvement in blood sugars Chief Complaint/HPI Chief Complaint/HPI Patient is a 42 year old woman with history of multiple cysts who presented to the ER 05/01/2017 in the evening with and abscess on the right posterior thigh that failed I&D, IM clindamycin and PO Bactrim. Patient first came into the ER last Monday for what she thought was a pimple, increasing erythema and tenderness around the area, and fever and vomiting. On I&D no purulent discharge was present. Patient was given a single dose IM clindamycin and PO Bactrim. After discharge patient noticed increased pain in the area as well as continued fever and vomiting. She had been changing the bandage 2-3 X /day She also noted yesterday evening a green bloody discharge from the lesion and increased pain which brought her into the ER. She was admitted, a CXR was obtained and was started on IV Vancomycin. She has not had any bowel movements since being admitted. No complaints about urination. Patient said she still feels nausea and that she had vomited this morning. She notes that pain is decreasing in severity and thinks the antibiotics are working. Discharge Summary-Simple/Stand Consultations Discharge Physical Examination Allergies: Coded Allergies: iodine (Unverified Allergy, Severe, HIVES, 11/27/16) doxycycline (Verified Allergy, Unknown, 11/08/16) hydromorphone (Verified Allergy, Unknown, Pt takes Tramadol at home, ) latex (Verified Allergy, Unknown, 11/08/16) metoclopramide (Verified Allergy, Unknown, 11/08/16) morphine (Verified Allergy, Unknown, 11/08/16) prochlorperazine (Verified Allergy, Unknown, 11/08/16) Vitals & I&Os Vital Sign - Last 12Hours Date Time Temp Pulse Resp B/P (MAP) Pulse Ox O2 Delivery O2 Flow Rate FiO2 05/03/17 08:18 96.0 84 16 157/82 97 Room Air Intake and Output 05/03/17 00:00 Intake Total 2885 ml Output Total 2500 ml Balance 385 ml General Appearance: Alert, No Acute Distress Skin: Other Neuro: Normal Speech Psych/Mental Status: Mental Status NL Hospital Course See final discharge diagnosis. Labs Laboratory Tests Test 05/01/17 18:52 05/01/17 19:00 05/01/17 19:34 05/02/17 05:08 Range/Units White Blood Count 11.7 H 4.3-11.0 10^3/uL Red Blood Count 4.56 4.35-5.85 10^6/uL Hemoglobin 12.1 11.5-16.0 G/DL Hematocrit 37 35-52 % Mean Corpuscular Volume 82 80-99 FL Mean Corpuscular Hemoglobin 27 25-34 PG Mean Corpuscular Hemoglobin Concent 32 32-36 G/DL Red Cell Distribution Width 15.1 H 10.0-14.5 % Platelet Count 393 130-400 10^3/uL Mean Platelet Volume 11.5 H 7.4-10.4 FL Neutrophils (%) (Auto) 58 42-75 % Lymphocytes (%) (Auto) 32 12-44 % Monocytes (%) (Auto) 7 0-12 % Eosinophils (%) (Auto) 2 0-10 % Basophils (%) (Auto) 1 0-10 % Neutrophils # (Auto) 6.8 1.8-7.8 X 10^3 Lymphocytes # (Auto) 3.7 1.0-4.0 X 10^3 Monocytes # (Auto) 0.9 0.0-1.0 X 10^3 Eosinophils # (Auto) 0.3 0.0-0.3 10^3/uL Basophils # (Auto) 0.1 0.0-0.1 10^3/uL Prothrombin Time 13.4 12.2-14.7 SEC INR Comment 1.1 0.8-1.4 Activated Partial Thromboplast Time 29 24-35 SEC Urine Color YELLOW Urine Clarity CLEAR Urine pH 5 5-9 Urine Specific [place] 1.020 1.016-1.022 Urine Protein 1+ H NEGATIVE Urine Glucose (UA) 4+ H NEGATIVE Urine Ketones NEGATIVE NEGATIVE Urine Nitrite NEGATIVE NEGATIVE Urine Bilirubin NEGATIVE NEGATIVE Urine Urobilinogen NORMAL NORMAL MG/DL Urine Leukocyte Esterase NEGATIVE NEGATIVE Urine RBC (Auto) NEGATIVE NEGATIVE Urine RBC NONE /HPF Urine WBC NONE /HPF Urine Squamous Epithelial Cells 25-50 H /HPF Urine Crystals NONE /LPF Urine Bacteria FEW H /HPF Urine Casts NONE /LPF Urine Mucus NEGATIVE /LPF Urine Culture Indicated NO Sodium Level 133 L 135-145 MMOL/L Potassium Level 4.4 3.6-5.0 MMOL/L Chloride Level 100 98-107 MMOL/L Carbon Dioxide Level 21 21-32 MMOL/L Anion Gap 12 5-14 MMOL/L Blood Urea Nitrogen 13 7-18 MG/DL Creatinine 0.74 0.60-1.30 MG/DL Estimat Glomerular Filtration Rate > 60 BUN/Creatinine Ratio 18 Glucose Level 264 H 70-105 MG/DL Lactic Acid Level 1.28 0.50-2.00 MMOL/L Calcium Level 9.1 8.5-10.1 MG/DL Total Bilirubin 0.3 0.1-1.0 MG/DL Aspartate Amino Transf (AST/SGOT) 6 5-34 U/L Alanine Aminotransferase (ALT/SGPT) 12 0-55 U/L Alkaline Phosphatase 65 40-136 U/L Total Protein 6.7 6.4-8.2 GM/DL Albumin 3.3 3.2-4.5 GM/DL Glucometer 258 H 70-110 MG/DL Test 05/02/17 06:10 05/02/17 10:38 05/02/17 16:05 05/02/17 22:17 Range/Units White Blood Count 10.1 4.3-11.0 10^3/uL Red Blood Count 4.45 4.35-5.85 10^6/uL Hemoglobin 11.9 11.5-16.0 G/DL Hematocrit 36 35-52 % Mean Corpuscular Volume 82 80-99 FL Mean Corpuscular Hemoglobin 27 25-34 PG Mean Corpuscular Hemoglobin Concent 33 32-36 G/DL Red Cell Distribution Width 14.2 10.0-14.5 % Platelet Count 355 130-400 10^3/uL Mean Platelet Volume 10.8 H 7.4-10.4 FL Neutrophils (%) (Auto) 46 42-75 % Lymphocytes (%) (Auto) 42 12-44 % Monocytes (%) (Auto) 8 0-12 % Eosinophils (%) (Auto) 3 0-10 % Basophils (%) (Auto) 1 0-10 % Neutrophils # (Auto) 4.6 1.8-7.8 X 10^3 Lymphocytes # (Auto) 4.2 H 1.0-4.0 X 10^3 Monocytes # (Auto) 0.8 0.0-1.0 X 10^3 Eosinophils # (Auto) 0.3 0.0-0.3 10^3/uL Basophils # (Auto) 0.1 0.0-0.1 10^3/uL Sodium Level 133 L 135-145 MMOL/L Potassium Level 4.2 3.6-5.0 MMOL/L Chloride Level 100 98-107 MMOL/L Carbon Dioxide Level 25 21-32 MMOL/L Anion Gap 8 5-14 MMOL/L Blood Urea Nitrogen 13 7-18 MG/DL Creatinine 0.77 0.60-1.30 MG/DL Estimat Glomerular Filtration Rate > 60 BUN/Creatinine Ratio 17 Glucose Level 247 H 70-105 MG/DL Calcium Level 9.1 8.5-10.1 MG/DL Total Bilirubin 0.3 0.1-1.0 MG/DL Aspartate Amino Transf (AST/SGOT) 10 5-34 U/L Alanine Aminotransferase (ALT/SGPT) 12 0-55 U/L Alkaline Phosphatase 67 40-136 U/L Total Protein 7.0 6.4-8.2 GM/DL Albumin 3.3 3.2-4.5 GM/DL Glucometer 279 H 261 H 172 H 70-110 MG/DL Test 05/03/17 05:44 05/03/17 06:45 05/03/17 11:10 Range/Units Glucometer 199 H 192 H 70-110 MG/DL White Blood Count 9.3 4.3-11.0 10^3/uL Red Blood Count 4.12 L 4.35-5.85 10^6/uL Hemoglobin 11.1 L 11.5-16.0 G/DL Hematocrit 34 L 35-52 % Mean Corpuscular Volume 82 80-99 FL Mean Corpuscular Hemoglobin 27 25-34 PG Mean Corpuscular Hemoglobin Concent 33 32-36 G/DL Red Cell Distribution Width 14.1 10.0-14.5 % Platelet Count 343 130-400 10^3/uL Mean Platelet Volume 10.4 7.4-10.4 FL Sodium Level 134 L 135-145 MMOL/L Potassium Level 4.1 3.6-5.0 MMOL/L Chloride Level 100 98-107 MMOL/L Carbon Dioxide Level 24 21-32 MMOL/L Anion Gap 10 5-14 MMOL/L Blood Urea Nitrogen 8 7-18 MG/DL Creatinine 0.69 0.60-1.30 MG/DL Estimat Glomerular Filtration Rate > 60 BUN/Creatinine Ratio 12 Glucose Level 171 H 70-105 MG/DL Calcium Level 8.8 8.5-10.1 MG/DL Discharge Instructions to patient/family Please see [employer]onic discharge instructions given to patient. Discharge Medications Reviewed and agree with Discharge Medication list on patient's Discharge Instruction sheet Clinical Quality Measures DVT/VTE Risk/Contraindication: Risk Factor Score Per Nursin RFS Level Per Nursing on Admit: 3=High Copy Copies To 1: YINKA THAKKAR MD; BRIE Gomez BETHANY N MD May 03, 2017 15:19
[2017-05-03 16:00] VITALS: BP 137/66
[2017-05-03] MEDS: GLIMEPIRIDE 4 MG (AMARYL) TAB PO SCH (17:11)
[2017-05-03] MEDS ORDERED: SIMvastatin 10 MG (ZOCOR) TAB PO SCH (21:00)
== END 2017-05-03 17:37 | disposition home or self-care (01) | DRG 603 ==
LOC: EDUNIT# 17:14 → ER 17:15 → 4TH 20:24
PROVIDERS: ADMIT Family Medicine; ATTEND Family Medicine
DX: L02.413 Cutaneous abscess of right upper limb (principal); B95.62 Methicillin resistant Staphylococcus aureus infection as the cause of diseases classified elsewhere; E11.65 Type 2 diabetes mellitus with hyperglycemia; E66.01 Morbid (severe) obesity due to excess calories; Z68.43 Body mass index [BMI] 50.0-59.9, adult; I10 Essential (primary) hypertension; M79.7 Fibromyalgia; M54.9 Dorsalgia, unspecified; K21.9 Gastro-esophageal reflux disease without esophagitis; F17.210 Nicotine dependence, cigarettes, uncomplicated; Z79.84 Long term (current) use of oral hypoglycemic drugs
CPT/HCPCS: 36415; 71010; 80048; 80053; 81000; 82962; 83605; 85025; 85027; 85610; 85730; 87040; 96374; 96375